=== PATIENT | female | born 1955 | race Caucasian/White ===

== ENCOUNTER 2018-04-02 13:03 | Inpatient (IN) | payer OTHER ==
[2018-04-02] VITALS (7 sets, daily range): BP systolic 114–168; BP diastolic 38–80
[~2018-04-02] VITALS: Ht 162.6 cm; Wt 75.7 kg
--- NOTE | ~2018-04-02 | PROC ---
[facility] [address] [place] [address] PROCEDURE REPORT Name: KIANNA HIDALGO ATTICA Room: [address] IN M.R.#: [id number] Admission: 04/02/18 Attend Phys: Oni Lang MD Discharge: Date of : 51 Report #: [id number] THIS REPORT FOR: //name// For GI report, please see the Provation report in Perceptive 7 content. By: 1056Medical Records Staff THAO /FRED
[2018-04-02] MEDS ORDERED: TYLENOL325 MG PO (13:16)
[2018-04-02] MEDS ORDERED: IBUPROFEN 200200 M1 PO (13:16)
[2018-04-02 13:50] LABS: MCH 16.5 pg (26.0-34.0); MCHC 27.5 g/dL (28.0-37.0); MPV 6.9 fl. (7.2-11.1); NUCLEATED RBCS 1 /100WBC; PLATELET COUNT* 444 thou/uL (150-400); RBC 1.65 mil/uL (4.20-5.00); RDW-CV 22.4 % (10.5-14.5); WBC 6.4 thou/uL (4.0-11.0)
[2018-04-02 13:56] LABS: ANION GAP 6 mmol/L (7-16); BUN 10 mg/dL (7-18); CALCIUM 7.9 mg/dL (8.5-10.1); CHLORIDE 105 mmol/L (98-107); CO2 25 mmol/L (21-32); CREATININE 0.9 mg/dL (0.6-1.3); GLUCOSE 124 mg/dL (70-99); POTASSIUM 3.5 mmol/L (3.5-5.1); SODIUM 136 mmol/L (136-145)
[2018-04-02 13:57] LABS: APTT 20.8 Seconds (25.0-31.3); PROTIME 10.7 Seconds (9.20-11.50)
[2018-04-02 14:01] LABS: HEMOGLOBIN 2.7 gm/dL (12.0-15.0)
[2018-04-02 14:02] LABS: HEMATOCRIT 9.9 % (37.0-47.0)
[2018-04-02 14:12] LABS: ALBUMIN 2.5 g/dL (3.4-5.0); ALKALINE PHOSPHATASE 71 U/L (46-116); LIPASE 110 U/L (73-393); NT-PRO BRAIN NAT PEPTIDE 696 pg/mL (<300); SGOT 9 U/L (15-37); SGPT 11 U/L (30-65); TOTAL BILIRUBIN 0.4 mg/dL (<0.1-1.0); TOTAL PROTEIN 6.7 g/dL (6.4-8.2); TROPONIN-I LEVEL <0.06 ng/mL (<0.06)
[2018-04-02 14:41] LABS: ABSOLUTE LYMPHOCYTES 0.6 thou/uL (0.8-5.3); ABSOLUTE MONOCYTES 0.2 thou/uL (0.0-1.2); ABSOLUTE NEUTROPHILS 5.6 thou/uL (1.6-8.1)
[2018-04-02 14:43] LABS: PLATELET ESTIMATE INCREASED
[2018-04-02 14:44] LABS: ANISOCYTOSIS 2+; HYPOCHROMASIA 3+; MICROCYTES 3+; POLYCHROMASIA Occasional; TEARDROPS 1+
[2018-04-02 14:45] LABS: OVALOCYTES Occasional; POIKILOCYTOSIS 1+
--- NOTE | 2018-04-02 15:14 | NUR ---
BLOOD CONSENT SIGNED. PRBC STARTED NOW.
--- NOTE | 2018-04-02 17:41 | NUR ---
PATIENT ARRIVED TO 210 PER BED THIS EVENING AT 1555. PATIENT HAS FIRST UNIT OF BLOOD INFUSING IN HER RIGHT UPPER AC. PATIENT ADMITTED TO ROOM AND ORIENTED TO ROOM, CALL LIGHT AND PROCEDURES. FALL PRECAUTIONS EXPLAINED. IV PUMP ALARMING FREQUENTLY DURING TRANFUSION ON ARRIVAL AND LINE DIFFICULT TO FLUSH. PATIENT PLACED ON TELE MONITOR. TELE SHOWS SR. SEE FLOW FOR ASSESSMENTS. CHARGE NURSE NOTIFIED TO ATTEMPT A NEW IV ACCESS. DR MEEKS IN TO ROUND AND ORDERS WRITTEN. PATIENT ADMITTED TO ROOM. DIAGNOSIS EXPLAINED TO PATIENT AND FAMILY. BLOOD TRANSFUSION CONTINUED FROM ER. PATIENT C/O RIGHT SIDE PAIN. SHE DENIES N/V. WILL CONTINUE TO MONITOR.
[2018-04-03] VITALS: BP 139/80
[2018-04-03 02:49] LABS: URINE BILIRUBIN NEGATIVE (Negative); URINE BLOOD NEGATIVE (Negative); URINE CLARITY CLEAR; URINE COLOR YELLOW; URINE GLUCOSE-RANDOM NEGATIVE (Negative); URINE KETONES NEGATIVE (Negative); URINE LEUKOCYTES TRACE (Negative); URINE NITRITE NEGATIVE (Negative); URINE PROTEIN NEGATIVE (Negative); URINE UROBILINOGEN 0.2 E.U./dl (0.2-1.0)
[2018-04-03 03:57] LABS: CASTS None Seen /LPF (None Seen); SQUAMOUS 0-3 Few /LPF (0-3)
[2018-04-03 03:58] LABS: BACTERIA >30 Many /HPF (None Seen); CRYSTALS None Seen /LPF (None Seen); URINE RBC None Seen /HPF (0-2)
[2018-04-03 04:00] VITALS: BP 112/68
--- NOTE | 2018-04-03 05:17 | NUR ---
ASSUMED CARE OF PT AT 1900. PT IS ALERT AND ORIENTED. VSS. PERRLA. PT REPORTS SOME PAIN IN ABDOMAN. PT RECIEVING TRAMADOL FOR PAIN. PT RECIEVED 2 UNITS OF BLOOD THIS SHIFT. HGB IS 7 AT THIS TIME. PT IS SLEEPING QUIETLY IN BED. RESPIRATIONS ARE EVEN AND NONLABORED. NISSA CONTINUE TO MONITOR PT.
[2018-04-03 08:00] VITALS: BP 119/58
[2018-04-03 11:39] VITALS: BP 110/64
--- NOTE | 2018-04-03 11:39 | NUR ---
ASSUMED CARE OF PATIENT THIS AM AT 0730. PATIENT IS ALERT AND ORIENTED X 4. SHE STATES ABD PAIN IS CONTROLLED AT THE TIME OF ASSESSMENT. PATIENT ON CLEAR LIQUIDS FOR BREAKFAST. TELE SHOWS NSR. NO BLEEDING NOTED AT THIS TIME. WILL CONTINUE TO MONITOR.
[2018-04-03 16:04] VITALS: BP 126/69
[2018-04-03 20:40] VITALS: BP 115/78
[2018-04-04] VITALS (7 sets, daily range): BP systolic 106–112; BP diastolic 50–60
--- NOTE | 2018-04-04 04:53 | NUR ---
PT CARE ASSUMED AT 1930. SAT MAINTAINED IN RA. CALL LIGHT WITHIN REACH AND BED IN LOW POSITION. C/O PAIN , MEDICATION GIVEN PER EMAR. PT FINISHED ALMOST HALF OF THE BOWEL PREP SOLUTION, EDUCATION GIVEN, REFUSES TO DRINK ANYMORE. AO X4 BUT FORGETFUL AT TIMES. HOURLY ROUNDING DONE FOR PT SAFETY.
--- NOTE | 2018-04-04 08:45 | NUR ---
REC'D REPORT FROM NOC RN, ASSUMED CARE OF PT APPROX 0730. ORIENTED X4, ABLE TO COMMUNICATE NEEDS TO STAFF. ASSESSMENT COMPLETE, VS OBTAINED. PLUGGER MAN IN PLACE, SR. O2 SATS 96% RA. NPO FOR COLONOSCOPY. FAMILY AT BEDSIDE. CALL LIGHT WITHIN REACH. HOURLY ROUNDING FOR SAFETY AND PT NEEDS.
--- NOTE | 2018-04-04 10:14 | NUR ---
Removed non-working IV from left fore arm and noted cloudy fluid coming from IV insertion site. Was small amount that was expressed from site. No redness noted at site. Does have small blood blister areas from tape removal.
--- NOTE | 2018-04-04 13:45 | NUR ---
in speaking with Pt regarding suspected CA dx, CM will f/u tomorrow
--- NOTE | 2018-04-04 14:01 | NUR ---
Nutrition: Nursing risk 2 points. No wt hx in [facility]. Pt is NPO after MN. Had colonoscopy today, found colon mass. Possible surgery Wednesday. ?cancer DX. Wt: 139#. Alb 2.3, prealb 10.8. No nutrition interventions needed today. Awaiting surgery, NPO status. Will follow up for results, diet advancement, need for supplements, wt, labs, 04/07/18.
--- NOTE | 2018-04-04 14:08 | EKG ---
[place] [address] ELECTROCARDIOGRAM REPORT Name: KIANNA HIDALGO Room: [address] ADM IN M.R.#: [id number] Admission: 04/02/18 Attend Phys: Oni Lang MD Discharge: Date of : 51 Report #: [id number] THIS REPORT FOR: //name// [facility] ED Test Date: 2018-04-02 Test Time: 13:37:57 Pat Name: KIANNA HIDALGO Department: Room: [facility] Gender: F Gambling Dealer: JOSE : 1955 Requested By: July Carranza Order Number: [id number] MD: Joby Peace Measurements Intervals [place] Rate: 87 P: 56 MO: 142 QRS: 2 QRSD: 93 T: 54 QT: 410 QTc: 494 Interpretive Statements Sinus rhythm Borderline prolonged QT interval No previous ECG available for comparison Electronically Signed On 04-04-2018 14:08:47 MAP COMPILER by Joby Peace [email or web address] <ELECTRONICALLY SIGNED> By: Joby Peace MD, [facility] 04/04/18 1408 1337 133 Joby Peace MD, FACC /EPI
--- NOTE | 2018-04-04 14:09 | EKG ---
[place] [address] ELECTROCARDIOGRAM REPORT Name: KIANNA HIDALGO Room: [address] ADM IN M.R.#: [id number] Admission: 04/02/18 Attend Phys: Oni Lang MD Discharge: Date of : 51 Report #: [id number] THIS REPORT FOR: //name// [facility] ED Test Date: 2018-04-02 Test Time: 14:40:26 Pat Name: KIANNA HIDALGO Department: Room: [facility] Gender: F Desktop Technician: JOSE : 1955 Requested By: July Carranza Order Number: [id number] : Joby Peace Measurements Intervals [place] Rate: 83 P: 66 ND: 171 QRS: 4 QRSD: 102 T: 60 QT: 409 QTc: 481 Interpretive Statements Sinus rhythm Minimal ST depression, lateral leads Borderline prolonged QT interval No previous ECG available for comparison Electronically Signed On 04-04-2018 14:09:11 SHELLAC POLISHER by Joby Peace [email or web address] <ELECTRONICALLY SIGNED> By: Joby Peace MD, [facility] 04/04/18 1409 1440 1440 Joby Peace MD, FAC /EPI
[2018-04-04 17:10] LABS: % SATURATION 53 % (20-39); IRON 163 ug/dL (50-175)
[2018-04-05] VITALS (7 sets, daily range): BP systolic 100–152; BP diastolic 50–69
--- NOTE | 2018-04-05 07:05 | NUR ---
RECEIVED REPORT AND ASSUMED CARE 1900. VSS. CARDIAC MONITORING IN PLACE. PT REPORTS PAIN, PRN MEDICATION ADMIN PER ORDERS. ASSESSMENT COMPLETED CHARTED. DISCUSSED PLAN OF CARE WITH PT, VERBALIZED UNDERSTANDING. BED LOCKED IN LOWEST POSITION CALL LIGHT WITHIN REACH. PT UP WITH ASSIST, ON RA. HOURLY ROUNDING COMPLETED AND ALL NEEDS MET.
--- NOTE | 2018-04-05 09:53 | NUR ---
Pt is A&O. Resides at home alone. Normally independent with ADLs. Pt's in February, Pt was his caregiver. New dx of CA yesterday, planned surgery tomorrow. No DME. No hx of HH or SNF. [facility] consulted regarding [place] [facility]. Following for disposition.
--- NOTE | 2018-04-05 09:59 | NUR ---
ASSUMED CARE OF PT THIS AM AROUND 714- REGIONAL MAINTENANCE MANAGER IN PLACE ORDERED, TRACING SR- UPON ASSESSMENT PT NOTED TO BE RESTING IN BED, DAUGHTER AT SIDE VISITING- PT A&O X4, FORGETFUL AT TIMES- CONTINENT OF BOWEL AND BLADDE- LIMITED/SBA WITH TRANSFERS FOR SAFETY- LCTA, RESP EVEN AND UN-LABORED- VSS, O2 SAT 96% ON RA- ABD SOFT/ROUND/TENDERNESS REPORTED TO RLQ, BS X4 QUADS- LAST BM REPORTED ON PRIOR SHIFT- IV NOTED TO RIGHT FA INTACT AND SL- TRACE EDEMA NOTED TO BLE-CLEAR LIQUIDS IN PLACE ORDERED- PAIN REPORTED 3/10 TO RLQ, REPOSITIONING IN PLACE- CALL LIGHT AND PERSONAL BELONGINGS WITH IN REACH- HOURLY ROUNDS IN PLACE R/T SAFETY/NEEDS- ALL NEEDS MET AT THIS TIME-WCTM
--- NOTE | 2018-04-05 17:28 | NUR ---
PT CURRENTLY RESTING IN BED, FAMILY AT SIDE VISITING- COOKER MECHANIC IN PLACE ORDERED, TRACING SR- IV TO RIGHT FA INTACT, BLOOD CURRENTLY INFUSSING PRESCIBED PRE R/T 7.1 HGB WITH SURGERY PLANNED IN AM- K+ RESULTED AT 3.3 THIS SHIFT, REPLACED PER PROTOCOL WITH REDRAW TO FOLLOW - PRN TRAMADOL X1 THIS SHIFT AT 1412 R/T C/O RIGHT SIDE PAIN, ZOFRAN X1 THIS SHIFT AT 1430 R/T UPSET STOMACH POST K+ REPLACEMENT- PLANNED SURGERY 04/06/18 AT 1400 FOR LAPAROSCOPIC RIGHT HEMICOLECTOMY; POSSIBLE HEMICOLECTOMY, PAOSSIBLE LAPAROTOMY, POSSIBLE OSTOMY- CONCENT SIGNED AND PLACED ON CHART INDICATED- VS CURRENLTY BEING MONITORED INDICATED WITH BLOOD INFUSSION- CALL LIGHT AND PERSONAL BELONGINGS WITH IN REACH- ALL NEEDS MET AT THIS TIME-WCTM
[2018-04-05 20:49] LABS: HEMOGLOBIN 9.1 gm/dL (12.0-15.0)
[2018-04-06] VITALS: BP 126/50
[2018-04-06 04:00] VITALS: BP 135/65
[2018-04-06 05:19] LABS: HEMATOCRIT 28.9 % (37.0-47.0); MCH 23.7 pg (26.0-34.0); MCHC 31.2 g/dL (28.0-37.0); MPV 7.4 fl. (7.2-11.1); NUCLEATED RBCS 0 /100WBC; PLATELET COUNT* 390 thou/uL (150-400); RBC 3.81 mil/uL (4.20-5.00); RDW-CV 31.1 % (10.5-14.5); WBC 10.6 thou/uL (4.0-11.0)
--- NOTE | 2018-04-06 05:20 | NUR ---
RECEIVED REPORT AND ASSUMED CARE AT 1900. VSS. CARDIAC MONITORING IN PLACE. PT DENIES COMPLAINTS OF PAIN. ASSESSMENT COMPLETED CHARTED. PT UP WITH ASSIST TO BSC, ON RA. BED LOCKED IN LOWEST POSITION, CALL LIGHT WITHIN REACH, BED ALARM ON. DISCUSSED PLAN OF CARE WITH PT, VERBALIZED UNDERSTANDING. HOURLY ROUNDING COMPLETED AND ALL NEEDS MET.
[2018-04-06 05:21] LABS: MCV 75.8 fL (80.0-100.0)
[2018-04-06 05:26] LABS: CALCIUM 8.5 mg/dL (8.5-10.1); CREATININE 0.6 mg/dL (0.6-1.3); POTASSIUM 4.4 mmol/L (3.5-5.1)
[2018-04-06 05:42] LABS: ABSOLUTE EOSINOPHILS 0.3 thou/uL (0.0-0.7); ABSOLUTE LYMPHOCYTES 1.3 thou/uL (0.8-5.3); ABSOLUTE MONOCYTES 0.4 thou/uL (0.0-1.2); ABSOLUTE NEUTROPHILS 8.6 thou/uL (1.6-8.1); ANISOCYTOSIS 3+; HYPOCHROMASIA 1+; PLATELET ESTIMATE ADEQUATE; POLYCHROMASIA 1+
[2018-04-06 08:07] VITALS: BP 123/69
--- NOTE | 2018-04-06 08:36 | NUR ---
CM faxed med recs to July at [facility], July working on expediating N[facility] wendie for Pt. Following.
--- NOTE | 2018-04-06 09:37 | NUR ---
ASSUMED CARE OF PT THIS AM AROUND 0715- SAMPLE BODY BUILDER IN PLACE ORDERED, TRACING SR- UPON ASSESSMENT PT NOTED TO BE RESTING IN BED, FAMILY AT SIDE VISITING AND ACTIVE WITH CARES- - PT A&O X4- WITHDRAWN/QUIET- CONTINENT OF BOWEL AND BLADDER- SBA WITH TRANSFERS FOR SAFETY- LCTA, DIMINSHED IN BASES- VSS, O2 SAT 95% ON RA- RIGHT ABD MASS NOTED, HYPOACTIVE BS- LAST BM REPORTED 04/05/18- IV NOTED TO LEFT FA INTACT AND SL- PT CURRENLTY NPO FOR PLANNED SURGERY TODAY AT 1400- PT REPORTS PAIN TO RIGHT LOWER ABD THIS AM 04/24, DENIES NEED FOR PAIN MEDICATION AT THIS TIME-CALL LIGHT AND PERSONAL BELONGINGS WITH IN REACH- HOURLY ROUNDS IN PLACE R/T SAFETY/NEEDS- ALL NEEDS MET AT THIS TIME-WCTM
[2018-04-06 11:39] VITALS: BP 118/57
[2018-04-06 13:00] VITALS: BP 106/50
--- NOTE | 2018-04-06 16:14 | NUR ---
[facility] wendie pending as of 04/06/18
--- NOTE | 2018-04-06 18:21 | NUR ---
PT LEFT UNIT AT 1300 FOR SURGERY VIA BED- PRE-OP ABT FLAGYL GIVEN TO NURSE TO ADMINISTER PRIOR TO SURERY-TRAMADOL ADMINISTERED X1 AT 1140 PRIOR TO SURGERY FOR C/O RIGHT LOWER ABD PAIN, PT REPORTED MEDICATION TO BE ERFFECTIVE- PT STILL OFF UNIT AT THIS TIME- HAS NOT RETURNED FROM SURGERY- WCTM
[2018-04-06 19:45] VITALS: BP 113/65
[2018-04-07] VITALS: BP 101/61
[2018-04-07 06:12] LABS: ABSOLUTE LYMPHOCYTES 0.6 thou/uL (0.8-5.3); ABSOLUTE MONOCYTES 0.8 thou/uL (0.0-1.2); ABSOLUTE NEUTROPHILS 15.5 thou/uL (1.6-8.1); BASOPHILS 0.3 %; HEMOGLOBIN 9.3 gm/dL (12.0-15.0); LYMPHOCYTES 3.6 %; MCH 23.7 pg (26.0-34.0); MCV 78.9 fL (80.0-100.0); MONOCYTES 4.8 %; MPV 7.5 fl. (7.2-11.1); NUCLEATED RBCS 0 /100WBC; PLATELET COUNT* 396 thou/uL (150-400); POLYS 91.3 %; RBC 3.92 mil/uL (4.20-5.00); RDW-CV 31.5 % (10.5-14.5)
[2018-04-07 06:23] LABS: CREATININE 1.5 mg/dL (0.6-1.3); POTASSIUM 4.8 mmol/L (3.5-5.1)
[2018-04-07 08:00] VITALS: BP 92/60
--- NOTE | 2018-04-07 09:18 | NUR ---
RECEIVED REPORT AND ASSUMED CARE AT 2015. PT TRANSPORTED BY NURSE FROM POST OP TO ROOM 210. VSS. CARDIAC MONITORING IN PLACE, SUCTION FOR NG SET TO LIS. PT VERBALIZED PAIN, RESTLESS, ANXIOUS. PRN MEDICATION ADMIN PER ORDERS. NG/RADHA DRAIN. MCCOY MONITORED THROUGH SHIFT. BED LOCKED IN LOWEST POSITION, CALL LIGHT WITHIN REACH, BED ALARM ON. FAMILY AT BEDSIDE. FAMILY SPOKE WITH NURSE ABOUT SPEAKING WITH DR/CM ABOUT PALLIATIVE CARE. PASSED REQUEST IN MORNING REPORT TO ONCOMING RN AND CM. HOURLY ROUNDING COMPLETED AND ALL NEEDS MET.
[2018-04-07 11:59] VITALS: BP 87/47
--- NOTE | 2018-04-07 14:08 | PATH ---
[address] [address] PATHOLOGY RPT PROCEDURE Name: KIANNA HIDALGO Room: [address] IN M.R.#: [id number] Admission: 04/02/18 Date of : 51 Discharge: Report #: [id number] Path Case #: [id number] [facility] Accession Number: [id number] . 01 Material submitted: . CECAL MASS . 01 Clinical history: . None provided . 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 . (Please see comment) [facility]04[facility]2018 . 02 Comment: This case has also been reviewed by Dr. Elanie Dugan who agrees with the diagnosis. . A message concerning the diagnosis in this case was left with Dr. Swathi Michael, on 04/05/2018. (SKM:damien 04/07/2018) . 02 Electronically signed: . Cheng Suero MD, Pathologist NPI- [id number] . 01 Gross description: . Received in formalin labeled "Kianna Hidalgo, cecal mass," are 4 segments of gould soft tissue measuring 1.3 x 0.8 x 0.3 cm in aggregate dimensions and ranging from 0.3 to 0.4 cm in maximum dimension. The specimen is submitted entirely in cassette A1. (TSD; 04/04/2018) TOB/TOB . 02 Pathologist provided ICD-10: C18.0 . 02 CPT . 213346 Specimen Comment: A courtesy copy of this report has been sent to Specimen Comment: [phone]. Specimen Comment: Report sent to Performed at: 01 [facility] [address] [place] [address] [id number] [place] [address] PATHOLOGY RPT PROCEDURE Name: KIANNA HIDALGOSA Room: [address] IN [facility]#: [id number] Admission: 04/02/18 Date of : 51 Discharge: Report #: [id number] Path Case #: [id number] MD Dhaval Miller MD Phone: [phone] Performed at: 02 [facility] [address] [place] [address] [id number] MD Andrew Gasca MD Phone: [phone]
--- NOTE | 2018-04-07 15:41 | NUR ---
RIGHT BASILIC VESSEL ACCESSED FOR SINGLE LUMEN 4 LAO PICC. LINE PRE-TRIMMED TO 36 CM AND ADVANCED TO THE ZERO KLARISSA WITH NO RESISTANCE MET. UPPER ARM CIRCUMFERENCE= 10". SHERLOCK MAGNET AND 3CG CONFIRMATION OF TIP TERMINATION AT THE CAVOATRIAL JUNCTION. GUIDEWIRE REMOVED, LINE FLUSHED AND INSERTION SITE DRESSED. REPORT GIVEN TO JORGE PERRY.
[2018-04-07 16:17] VITALS: BP 104/54
[2018-04-07 16:18] LABS: HEMATOCRIT 29.4 % (37.0-47.0); HEMOGLOBIN 8.8 gm/dL (12.0-15.0)
[2018-04-07 17:37] LABS: RBC 3.76 mil/uL (4.20-5.00); WBC 11.9 thou/uL (4.0-11.0)
[2018-04-07 17:38] LABS: MCH 23.3 pg (26.0-34.0); MCV 77.6 fL (80.0-100.0); RDW-CV 32.2 % (10.5-14.5)
[2018-04-07 17:39] LABS: MPV 7.7 fl. (7.2-11.1)
[2018-04-07 17:40] LABS: CALCIUM 8.5 mg/dL (8.5-10.1); CREATININE 2.2 mg/dL (0.6-1.3); POTASSIUM 5.1 mmol/L (3.5-5.1)
[2018-04-07 20:00] VITALS: BP 102/53
[2018-04-08 00:08] VITALS: BP 97/57
[2018-04-08 04:12] VITALS: BP 110/49
--- NOTE | 2018-04-08 04:50 | NUR ---
ASSUMED PATIENT CARE AT 1900. PATIENT ALERT AND ORIENTED TIMES FOUR. COMPLAINTS OF CONSTANT PAIN IN ABD. RELIEVED WITH IV PAIN MEDICATION. GAVE SMALLER DOSE THROUGHOUT THE NIGHT WITH SAME AMOUNT OF RELIEF AND LESS NEUROLOGICAL DEFICITS. RESTED ON AND OFF THROUGH THENIGHT. NG IN PLACE TO RIGHT NARE. MCCOY AND IV PATENT. FAMILY AT BEDSIDE. FALL RISK PRECAUTIONS IN PLACE. HOURLY ROUNDING AND HADOOP APPLICATION DEVELOPER CHARTED.
--- NOTE | 2018-04-08 07:16 | CON ---
[address] [address] CONSULTATION Name: KIANNA HIDALGO Room: [address] IN M.R.#: [id number] Admission: 04/02/18 Attend Phys: Oni Lang MD Discharge: Date of : 51 Report #: [id number] THIS REPORT FOR: //name// CC: [facility] physician/PCP Oni Lang DATE OF SERVICE: 04/07/2018 INFECTIOUS DISEASE CONSULTATION ATTENDING PHYSICIAN: Dr. Lang. REASON FOR EVALUATION: Positive blood culture, also low grade temperature elevations in the setting of extended surgery for removal of a right-sided colonic mass. This was complicated by ureteral compromise. HISTORY OF PRESENT ILLNESS: Chart reviewed, patient examined. This is a 62-year-old with a fairly unremarkable history, although it appears she has been ill for quite some time and has had ongoing issues of abdomen-related pain. She has had a weight loss per family in excess of 100 pounds, associated anorexia with poor p.o. intake. She is unable to give history, although children are there to supply some, the recent of her spouse. She has been profoundly depressed. She was evaluated including CT imaging on 04/02/2018, which showed cecal thickening, mild pericolonic soft tissue strandings, there was question of a colonic mass. Chest x-ray was otherwise unremarkable. She underwent operative procedure, had right hemicolectomy. Specimens showed large obstructing cecal mass, did require right ureteral-ureterostomy with stent placement as well. She is seen postop. She is quite encephalopathic at this point, in part I think as a result of residual medication effects. She did have blood cultures collected on the with 1 out of 2 with coag-negative Staph. Abscess culture is pending. She has been started on empiric therapy with metronidazole, cefazolin. ALLERGIES: None known. MEDICATIONS: Currently include enoxaparin, pantoprazole, Flagyl, hydromorphone, cefazolin, p.r.n. analgesics and antiemetics. PAST MEDICAL HISTORY: Otherwise, unremarkable. SOCIAL HISTORY: Nonsmoker, no ethanol or illicit drug use. FAMILY HISTORY: Noncontributory. REVIEW OF SYSTEMS: Not reliably obtained due [place] [address] CONSULTATION Name: KIANNA HIDALGOSA Room: [address]#: [id number] Admission: 04/02/18 Attend Phys: Oni Lang MD Discharge: Date of : 51 Report #: [id number] PHYSICAL EXAMINATION: GENERAL: She appears chronically ill, undernourished. She is in xkwl-gl-ozkrwvos distress. VITAL SIGNS: Temperature 99.2, pulse 102, respirations 16, blood pressure 87/47. SKIN: Warm, dry, no rashes. HEENT: Normocephalic. NECK: Supple. LUNGS: Diminished bilaterally. HEART: Regular, tachycardic. No appreciated murmur. ABDOMEN: Soft. There are no overt peritoneal signs. She has got a Evaristo-Whitney drain in place, scant amount of output. EXTREMITIES: Distal lower extremities, somewhat cool to touch distally. GENITOURINARY: Deferred. RECTAL: Deferred. LABORATORY DATA: Electrolytes: Sodium 139, potassium 4.8, chloride 107, bicarb is 22, anion gap of 10, BUN and creatinine 11 and 1.5. Estimated GFR of 35. CBC: White count of 17.0, H and H 9.3 and 31.0, platelets of 396. Blood culture as noted above, felt to be a false positive or contaminant with 1 out 2 with coag-negative staph. Prealbumin was low at 10.8. Liver functions otherwise unremarkable. Albumin of 2.3. Total protein 6.2. ASSESSMENT AND PLAN: Positive blood culture in this setting. I think it is likely a false positive. She did have some low-grade temperature elevation. Certainly at risk for nosocomial related infectious complications including a surgical site. We will adjust antimicrobial therapy at this point, repeat the chest x-ray. Certainly at risk for pneumonitis on the basis of aspiration given her encephalopathy. Does have an indwelling catheter in bladder. Did discuss with the patient's family the pathology report is pending. <ELECTRONICALLY SIGNED> By: Clive Wilson MD 04/08/18 0716 1338 1952Jowilver Wilson MD /nt
[2018-04-08 08:35] VITALS: BP 89/49
[2018-04-08 09:07] LABS: HEMATOCRIT 28.2 % (37.0-47.0); HEMOGLOBIN 8.4 gm/dL (12.0-15.0); MCH 23.4 pg (26.0-34.0); MCHC 29.9 g/dL (28.0-37.0); MCV 78.3 fL (80.0-100.0); MPV 7.7 fl. (7.2-11.1); NUCLEATED RBCS 0 /100WBC; PLATELET COUNT* 376 thou/uL (150-400); RDW-CV 33.7 % (10.5-14.5); WBC 9.8 thou/uL (4.0-11.0)
[2018-04-08 09:15] LABS: CALCIUM 7.9 mg/dL (8.5-10.1); CREATININE 2.7 mg/dL (0.6-1.3); MAGNESIUM 1.5 mg/dL (1.8-2.4); PHOSPHORUS* 5.6 mg/dL (2.5-4.9); POTASSIUM 5.2 mmol/L (3.5-5.1)
--- NOTE | 2018-04-08 09:34 | OP ---
[facility] [address] [place] [address] OPERATIVE REPORT Name: KIANNA HIDALGO Room: [address] IN M.R.#: [id number] Admission: 04/02/18 Attend Phys: Oni Lang MD Discharge: Date of : 51 Report #: [id number] THIS REPORT FOR: //name// CC: [facility] physician/PCP Oni Lang DATE OF SERVICE: 04/06/2018 PREOPERATIVE DIAGNOSIS: Right proximal ureteral injury. POSTOPERATIVE DIAGNOSIS: Right proximal ureteral injury. PROCEDURES PERFORMED: Right ureteroureterostomy. SURGEON: Kehinde De Luna M.D. DRILLING FOREMAN: Edil Doherty M.D. ANESTHESIA: General endotracheal. BRIEF HISTORY: The patient is a 62-year-old female with recently diagnosed right colon cancer. She was scheduled for a right hemicolectomy with Dr. Dangelo this afternoon. Intraoperatively Dr. Dangelo recognized a right ureteral injury and urologic consultation was obtained. The patient was under anesthesia and prepped and draped at the time of the consultation. PROCEDURE IN DETAIL: The patient was prepped and draped with an open abdominal incision. The abdominal contents had been previously packed off by Dr. Dangelo. Careful inspection revealed the patient's right kidney in situ and healthy appearing. The right proximal ureter was identified, and there was a clear transection of the proximal ureter with thermal artifact at its distal extent. The remainder of the ureter appeared healthy without any apparent thermal injury. The distal portion of the ureter was similarly identified and had clearly been transected with a thermal injury as well. The remainder of the mid ureter appeared healthy. At this time, a 2-0 Vicryl stay suture was placed through each end of the transected ureter. This was used in retraction as the ureter was gently mobilized both proximally and distally in order to create enough length for anastomosis. Care was taken not to disrupt the periureteral tissues or grasp the ureter directly. The two ureteral ends were loosely brought into approximation, and there was clear overlap, accounting for the space required to remove the thermal injury. At this time, Metzenbaum scissors were used to transect each end allowing for a healthy margin of tissue to account for the thermal injury. With the ends freshened up, they were then spatulated. Once again, bringing the two ends loosely together demonstrated a nice approximation for a tension-free anastomosis. At this time, a running 4-0 [place] [id number] OPERATIVE REPORT Name: KIANNA HIDALGO Room: [address] IN [facility]#: [id number] Admission: 04/02/18 Attend Phys: Oni Lang MD Discharge: Date of : 51 Report #: [id number] anastomosis. Prior to completing the anastomosis a 0.035 sensor wire was fed into the proximal portion of the ureter up into the kidney. A 6 x 28 Contour ureteral stent was then advanced over the wire and into the kidney. The wire was withdrawn. The wire was then fed down the distal ureter to the bladder. The distal end of the stent was then fed over the wire and was directed down the ureter to the bladder. The wire was removed and the stent was seen to seat nicely within the anastomosis. The anastomosis was then completed with the 4-0 Vicryl, running it to close the defect. After the closure had been completed, the ureter was nicely reapproximated with a tension-free anastomosis. Care of the patient was then turned over to Dr. Dangelo and his staff to complete their portion of the procedure. Right flank drain was recommended along with Webster catheter drainage. COMPLICATIONS: None. ESTIMATED BLOOD LOSS: Per Dr. Dangelo. IV FLUIDS: Per Dr. Dangelo. SPECIMENS: None per Urology. DRAINS: Right 6 x 28 double-J ureteral stent. FINDINGS: 1. Completely transected right proximal ureter with thermal injury at the sites of transection. 2. Tension-free ureteroureterostomy after freshening the edges of the transected ureter. 3. Right 6 x 28 double-J ureteral stent placed. <ELECTRONICALLY SIGNED> By: Kehinde De Luna MD 04/08/18 0934 1807 [id number] De Luna MD /nt
[2018-04-08 10:55] LABS: ABSOLUTE BASOPHILS 0.1 thou/uL (0.0-0.2); ABSOLUTE LYMPHOCYTES 0.4 thou/uL (0.8-5.3); ABSOLUTE MONOCYTES 0.1 thou/uL (0.0-1.2); ABSOLUTE NEUTROPHILS 9.2 thou/uL (1.6-8.1); ANISOCYTOSIS 3+; HYPOCHROMASIA 2+; PLATELET ESTIMATE ADEQUATE
[2018-04-08 12:04] LABS: URINE BLOOD 3+ (Negative); URINE CLARITY CLEAR; URINE COLOR YELLOW; URINE GLUCOSE-RANDOM NEGATIVE (Negative); URINE KETONES TRACE (Negative); URINE LEUKOCYTES 3+ (Negative); URINE NITRITE POSITIVE (Negative); URINE PROTEIN 3+ (Negative); URINE UROBILINOGEN 0.2 E.U./dl (0.2-1.0)
[2018-04-08 12:06] LABS: ICTOTEST (BILI CONFIRMATORY) Positive (Negative); URINE BILIRUBIN 2+ (Negative)
[2018-04-08 12:16] LABS: BACTERIA >30 Many /HPF (None Seen); CASTS None Seen /LPF (None Seen); CRYSTALS None Seen /LPF (None Seen); MUCUS None Seen strn/LPF (None Seen); SQUAMOUS 0-3 Few /LPF (0-3); URINE RBC >20 Many /HPF (0-2)
[2018-04-08 12:18] LABS: ALBUMIN 1.8 g/dL (3.4-5.0); CALCIUM 7.8 mg/dL (8.5-10.1); CREATININE 2.8 mg/dL (0.6-1.3); PHOSPHORUS* 5.7 mg/dL (2.5-4.9); POTASSIUM 5.2 mmol/L (3.5-5.1)
[2018-04-08 12:58] VITALS: BP 103/60
--- NOTE | 2018-04-08 18:03 | NUR ---
PT WORKED WITH PT/OT TODAY. WAS ABLE TO TOLERATE CLEAR LIQUID DIET WITH FAMILY ENCOURAGEMENT. PT USING INCENTIVE SPIROMETER FREQUENTLY.
[2018-04-08 20:00] VITALS: BP 104/52
[2018-04-08 21:51] LABS: SOURCE JP DRAIN
[2018-04-08 23:30] VITALS: BP 107/60
[2018-04-09 04:00] VITALS: BP 116/59
[2018-04-09 05:09] LABS: ABSOLUTE LYMPHOCYTES 0.4 thou/uL (0.8-5.3); ABSOLUTE MONOCYTES 0.4 thou/uL (0.0-1.2); ABSOLUTE NEUTROPHILS 6.4 thou/uL (1.6-8.1); BASOPHILS 0.2 %; EOSINOPHILS 0.2 %; HEMATOCRIT 24.2 % (37.0-47.0); HEMOGLOBIN 7.3 gm/dL (12.0-15.0); LYMPHOCYTES 5.2 %; MCH 23.7 pg (26.0-34.0); MCHC 30.3 g/dL (28.0-37.0); MCV 78.2 fL (80.0-100.0); MONOCYTES 5.7 %; MPV 8.6 fl. (7.2-11.1); NUCLEATED RBCS 0 /100WBC; POLYS 88.7 %; RBC 3.09 mil/uL (4.20-5.00); RDW-CV 33.9 % (10.5-14.5); WBC 7.2 thou/uL (4.0-11.0)
[2018-04-09 05:22] LABS: PREALBUMIN 4.3 mg/dL (18.0-35.7)
[2018-04-09 05:25] LABS: PLATELET COUNT* 267 thou/uL (150-400)
[2018-04-09 06:00] LABS: ALBUMIN 1.5 g/dL (3.4-5.0); ALKALINE PHOSPHATASE 51 U/L (46-116); ANION GAP 10 mmol/L (7-16); BUN 28 mg/dL (7-18); CALCIUM 7.6 mg/dL (8.5-10.1); CHLORIDE 113 mmol/L (98-107); CO2 20 mmol/L (21-32); CREATININE 1.6 mg/dL (0.6-1.3); GLUCOSE 112 mg/dL (70-99); PHOSPHORUS* 3.6 mg/dL (2.5-4.9); POTASSIUM 3.9 mmol/L (3.5-5.1); SGOT 11 U/L (15-37); SGPT < 6 U/L (30-65); SODIUM 143 mmol/L (136-145); TOTAL BILIRUBIN 0.6 mg/dL (<0.1-1.0); TOTAL PROTEIN 4.6 g/dL (6.4-8.2)
--- NOTE | 2018-04-09 07:40 | NUR ---
RECEIVED REPORT AND ASSUMED CARE AT 1900. VSS. CARDIAC MONITORING IN PLACE. PT REPORTS PAIN. PRN MEDICATION ADMIN PER ORDERS. ASSESSMENT COMPLETED CHARTED. PT UP WITH ASSIST, NG CLAMPED, RADHA DRAIN MONITORED THROUGH SHIFT. BED LOCKED IN LOWEST POSTION, CALL LIGHT WITHIN REACH, BED ALARM ON. POSITION CHANGED EVERY TWO HOURS. HOURLY ROUDNING COMPLETED AND ALL NEEDS MET.
[2018-04-09 08:00] VITALS: BP 120/68
[2018-04-09 12:00] VITALS: BP 120/76
--- NOTE | 2018-04-09 15:01 | NUR ---
PT UP TO CHAIR WITH MUCH ENCOURAGEMENT.DISCUSSED IMPORTANCE OF BEING OUT OF BED WITH BOTH PT AND FAMILY.
[2018-04-09 16:00] VITALS: BP 140/76
[2018-04-09 16:24] VITALS: BP 144/85; BP 147/80; BP 153/76; BP 154/78
--- NOTE | 2018-04-09 17:22 | NUR ---
PT RESTING IN BED THROUGHOUT SHIFT. PT ENCOURAGED TO REPOSITION EVERY 2 HOURS.PT DOES SO WITH MUCH ENCOURAGEMENT. PT UP TO CHAIR FOR APPROX 1 HOUR THIS AFTERNOON. PT HAS POOR APPETITE AND ONLY DRINKING A SMALL AMT OF CLEAR LIQUIDS.IVF INFUSING. MCCOY CATH DRAINING TOM URINE. RADHA TO RUQ DRAINING SEROUS FLUID. IS PERFORMED EVERY HOUR. BLOOD TRANSFUSION THIS PM. FAMILY AT AND INVOLVED IN CARE
[2018-04-09 20:00] VITALS: BP 142/76
[2018-04-09 21:57] LABS: ABSOLUTE LYMPHOCYTES 0.5 thou/uL (0.8-5.3); ABSOLUTE MONOCYTES 0.5 thou/uL (0.0-1.2); ABSOLUTE NEUTROPHILS 8.2 thou/uL (1.6-8.1); EOSINOPHILS 0.2 %; HEMATOCRIT 27.6 % (37.0-47.0); HEMOGLOBIN 8.8 gm/dL (12.0-15.0); LYMPHOCYTES 5.7 %; MCHC 31.7 g/dL (28.0-37.0); MCV 78.8 fL (80.0-100.0); MONOCYTES 5.8 %; MPV 7.9 fl. (7.2-11.1); NUCLEATED RBCS 0 /100WBC; PLATELET COUNT* 254 thou/uL (150-400); POLYS 88.3 %; RBC 3.51 mil/uL (4.20-5.00); RDW-CV 31.9 % (10.5-14.5); WBC 9.3 thou/uL (4.0-11.0)
[2018-04-10] VITALS: BP 142/65
--- NOTE | 2018-04-10 03:28 | NUR ---
ASSUMED PT CARE AT 1930. ASSESSMENT COMPLETED CHARTED. ABLE TO MAKE NEEDS KNOWN. PT SON IN ROOM WITH HER. C/O ABDOMINAL PAIN WHEN TURNING, GAVE PRN PAIN MEDICATION. IVF RUNNING PER P.O. MCCOY DRAINING DARK YELLOW URINE. RADHA DRAIN IN PLACE DRAINING YELLOW LOOKING LIQUID WITH SEDIMENT. VSS. WILL CONTINUE TO MONITOR.
[2018-04-10 04:00] VITALS: BP 132/64
[2018-04-10 08:00] VITALS: BP 139/66
[2018-04-10 16:00] VITALS: BP 157/80
--- NOTE | 2018-04-10 16:09 | NUR ---
PT TEARFUL STATES SHE FEELS LIKE SHE IS A BURDEN TO HER FAMILY. PT HESITANT TO GET OUT OF BED. "IF I AM GOING TO HURT THIS BAD ALL THE TIME I JUST WANT TO !"
--- NOTE | 2018-04-10 16:12 | NUR ---
PT RESTING IN BED MOST OF SHIFT. REPOSITIONED FREQUENTLY. PT UP IN CHAIR TWICE TODAY WITH MUCH HESITANCE. FAMILY AT BS AND INVOLVED IN CARE. PAIN MEDS GIVEN ORDERED. PT TOLERATING CLEAR LIQUIDS. NG REMOVED THIS AM. IVF INFUSING,MCCOY CATH DRAINING
[2018-04-10 18:36] VITALS: BP 157/80
[2018-04-10 20:00] VITALS: BP 141/72
[2018-04-11] VITALS: BP 109/67
--- NOTE | 2018-04-11 02:57 | NUR ---
ASSUMED PT CARE AT 1930. ASSESSMENT COMPLETED CHARTED. ABLE TO MAKE NEEDS KNOWN. C/O ABDOMINAL PAIN, MIDLINE INSITION C/D/I, RADHA DRAIN IN PLACE DRAINING YELLOW DRAINAGE WITH ORANGE/RED SEDIMENT. GAVE PRN PAIN MEDICATIONS TO HELP WITH PAIN. MININAL NAUSEA NOTED. DAUGHTER HAS STAYED THE NIGHT WITH PT ALL NIGHT. PT REFUSING TURNS BECAUSE SHE FOUND A COMFORTABLE POSTION. EDUCATION ON IMPORTANCE OF TURNS AND THERAPY GIVEN. IVF INFUSING PER P.O. PT RESTING IN BED AT THIS TIME. WILL CONTINUE TO MONITOR.
[2018-04-11 04:00] VITALS: BP 108/63
[2018-04-11 07:30] VITALS: BP 118/64
--- NOTE | 2018-04-11 10:18 | CON ---
[address] [address] CONSULTATION Name: KIANNA HIDALGO Room: [address] IN M.R.#: [id number] Admission: 04/02/18 Attend Phys: Oni Lang MD Discharge: Date of : 51 Report #: [id number] THIS REPORT FOR: //name// CC: [facility] physician/PCP Oni Lang NEPHROLOGY CONSULTATION CONSULTING PHYSICIAN: Oni Lang M.D. REASON FOR CONSULTATION: Acute kidney injury. HISTORY OF PRESENT ILLNESS: A 62-year-old female who I am asked to see for acute kidney injury. She has a history of right colon adenocarcinoma and was undergoing right hemicolectomy, when she was noted to have a right proximal ureteral injury and intraoperative Urology consult was obtained. She underwent right ureteroureterostomy, but creatinine has increased significantly from 1.5 to 2.2 to 2.7, with some decreased urine output. She appears to be comfortable at the present time, does not have any complaints. REVIEW OF SYSTEMS: Constitutional, psych, heme, eyes, ENT, respiratory, cardiac, GI, , endocrine all negative, except as documented above. PAST MEDICAL HISTORY: Colon cancer. CURRENT MEDICATIONS: Reviewed. SOCIAL HISTORY: No tobacco. FAMILY HISTORY: Not pertinent in this 62-year-old female. PHYSICAL EXAMINATION: VITAL SIGNS: Blood pressure is 89/49, pulse 112, respirations 18 and temperature 36.7. GENERAL: No acute distress. EYES: Extraocular movements intact. EARS: Externally normal. CARDIOVASCULAR: Tachycardic. LUNGS: Diminished breath sounds. ABDOMEN: Soft. LYMPHATICS: No pitting edema. PSYCHIATRIC: Awake, alert. LABORATORY DATA: White cell count 9.8, hemoglobin 8.4 and platelets 376,000. Sodium 139, potassium 5.2, chloride 106, bicarbonate 22, BUN 27, creatinine 2.7, glucose 95 and calcium 7.9. Phosphorus 5.6. Magnesium 1.5. [place] [address] CONSULTATION Name: KIANNA HIDALGO ALON Room: [address] IN [facility].#: [id number] Admission: 04/02/18 Attend Phys: Oni Lang MD Discharge: Date of : 51 Report #: [id number] ASSESSMENT: 1. Acute kidney injury with admission creatinine of 0.9. This is in the setting of low blood pressures. Creatinine up to 2.7 on 04/08/2018. 2. Hypertension. 3. Anemia. 4. Colon cancer, status post right hemicolectomy. 5. Right proximal ureteral injury, status post ureteroureterostomy. 6. Intra-abdominal abscess, status post incision and drainage. PLAN: 1. On normal saline, the urine output is starting to picker operator. 2. Check U/A with micro. 3. Check renal ultrasound as she is on empiric antibiotics. 4. Hypomagnesemia. We will replace magnesium. 5. Case was discussed with the patient and family in detail. We will follow closely. Thank you for requesting my opinion in the care and management of this patient. <ELECTRONICALLY SIGNED> By: Radha Kapoor MD 04/11/18 [id number] Kapoor MD /nt
[2018-04-11 12:00] VITALS: BP 105/64
--- NOTE | 2018-04-11 15:06 | PATH ---
[address] [address] PATHOLOGY RPT PROCEDURE Name: KIANNA HIDALGO Room: [address] IN M.R.#: [id number] Admission: 04/02/18 Date of : 51 Discharge: Report #: [id number] Path Case #: [id number] [facility] Accession Number: [id number] . 01 Material submitted: . PART A: RIGHT COLON PART B: OMENTUM . 01 Clinical history: . Cecal Mass Perforated right colon mass . 02 Diagnosis: A. Right colon: - ULCERATED, CIRCUMFERENTIAL MODERATE TO POORLY DIFFERENTIATED ADENOCARCINOMA FORMING A MASS IN THE CECUM MEASURING 5.0 X 4.3 CM, WITH TRANSMURAL INVASION AND DIRECT EXTENSION TO SURGICAL MARGINS AROUND OPEN DEFECTS ADHERENT TO BOTH LATERAL ABDOMINAL WALL WELL SECOND PART OF DUODENUM AND ALSO INVOLVING INKED FREE SEROSAL SURFACE, WITH PROXIMAL AND DISTAL RESECTION MARGINS FREE OF MALIGNANCY. - AT LEAST SIX OF AT LEAST ELEVEN PERICOLIC LYMPH NODES WITH METASTATIC ADENOCARCINOMA (SEE COMMENT). . B. "Omentum": - Benign omental fat. [facility]/04/11/2018 . 02 Comment: Surgical Pathology Cancer Case Summary . Protocol posting date: July 2016 . COLON AND RECTUM: . Procedure ___ Right hemicolectomy . Tumor Site ___ Cecum . Tumor Size Greatest dimension: 5.0 X 4.0 cm Macroscopic Tumor Perforation ___ Not identified . Histologic Type ___ [place] [address] PATHOLOGY RPT PROCEDURE Name: KIANNA HIDALGO [place] Room: [address] IN [facility]#: [id number] Admission: 04/02/18 Date of : 51 Discharge: Report #: [id number] Path Case #: [id number] Histologic Grade ___ G3: Poorly-differentiated . Tumor Extension ___ Tumor directly invades adjacent structures: Lateral abdominal wall and second part duodenum . Margins . Proximal Margin ___ Uninvolved by invasive carcinoma Distance of tumor from margin: Greater than 5 cm . Distal Margin ___ Uninvolved by invasive carcinoma Distance of tumor from margin: Greater than 5 cm . Mesenteric Margin ___ Uninvolved by invasive carcinoma . Other Margin ___ Involved by invasive carcinoma . Treatment Effect: ___ No known presurgical therapy . Lymphovascular Invasion ___ Present: large vessel (venous) invasion, extramural . + Perineural Invasion + ___ Not identified . Tumor Deposits ___ Not identified . Regional Lymph Nodes . Number of Lymph Nodes Involved: At least six . Number of Lymph Nodes Examined: At least eleven . . PATHOLOGIC STAGE CLASSIFICATION (pTNM, AJCC 8TH EDITION) . Primary Tumor (pT) ___ pT4b: Tumor invades visceral peritoneum (serosa) or other organs or other adjacent structures . Regional Lymph Nodes (pN) [place] [address] PATHOLOGY RPT PROCEDURE Name: KIANNA HIADLGO Room: [address] IN [facility]#: [id number] Admission: 04/02/18 Date of : 51 Discharge: Report #: [id number] Path Case #: [id number] ___ pN2a: Four to six regional lymph node are positive . + Additional Pathologic Findings + ___ Other: Dilated benign appendix . Ancillary studies: . MICROSATELLITE INSTABILITY REPORT (MSI): . Mismatch repair (MMR) protein immunohistochemical staining was performed: . Specimen:Formalin fixed paraffin embedded tissue Specimen ID:[id number] Reason for testing:To evaluate for evidence of defective mismatch repair proteins. Method:Immunohistochemical staining for the presence or absence of protein expression of one or more of the following MMR protein markers: MLH1, MSH2, MSH6 and PMS2. Tumor type:Adenocarcinoma . Results: MLH1 -Preserved MSH2 -Preserved MSH6 -Preserved PMS2 -Preserved . Mismatch Repair Status:MMR Proficient (MMR-P) . Interpretation: . (MMR-P) All four MMR proteins are preserved within tumor cells. This suggests the presence of normal DNA mismatch repair function within the tumor and an observable defect in mismatch repair is not identified. The likelihood that this patient has an inherited germline mutation syndrome due to defective mismatch repair is reduced but not totally eliminated. If the patient has a strong personal or family history of HPNCC/Mclean syndrome related cancers (colorectal, endometrial, gastric, ovarian, pancreatic, ureter/renal pelvis, biliary tract, brain, small bowel and Mays-Jim syndrome), consider MSI testing by PCR methodology. Suggest clinical correlation and follow up. . . . The possible lymph node candidate submitted in A20-A21 represents a large focus of tumor extending into fat and it is not certain if this represents an obliterated lymph node or possible direct extension of the tumor and therefore the lymph node status is qualified as "at least" six of "at least" eleven lymph nodes involved such that the lymph node stage may be higher (pN2b) if it is indeed [place] [address] PATHOLOGY RPT PROCEDURE Name: KIANNA HIDALGO Room: [address] IN ..#: [id number] Admission: 04/02/18 Date of : 51 Discharge: Report #: [id number] Path Case #: [id number] vessel invasion is noted in A6 and there are also smaller foci of lymphovascular invasion identified. The tumor is predominantly moderately differentiated however in several areas at the invasive front it is more poorly differentiated. . (LAURITA:pit 04/11/2018) . 02 Electronically signed: . Benny Solis MD, Pathologist NPI- [id number] . 01 Gross description: . A. Received fresh in the operating room accompanied by a label marked "Kianna Hidalgo, right colon" is a distorted segment of bowel in which one portion of surgical margin is recognizable by a linear arrangement of charlette although the opposite margin is not readily seen. An appendix is noted and the recognizable bowel is thought most likely to represent small intestine. Dr. Dangelo demonstrates the specimen for orientation purposes only. He notes this large tumor (previously biopsied) was adherent to the lateral abdominal wall where there is a transmural open defect (measuring 4.0 x 2.5 cm) and on the opposite aspect of the segment is an irregular transmural defect also exposing luminal tumor within (defect measuring 5.0 x 3.0 cm) and this defect was dissected away from the second part of the duodenum. The later defect (adherent to duodenum) is inked green around the surgical margin edge and the other defect edge is inked black. The specimen is submitted for formalin fixation prior to further examination. . (LAURITA:pit 04/11/2018) . The terminal ileum measures 5.0 cm in length and 2.8 cm in diameter, appendix (4.5 cm in length and 0.8 cm in diameter), cecum/ascending colon (12.0 cm in length and up to 7.0 cm in diameter), and omentum (15.8 x 11.0 cm). Both margins are closed with charlette. The pericolic fat measures up to 5.0 cm. The previously black inked transmural defect extends 7.0 cm from the proximal margin and 5.5 cm from the distal margin. The previously green inked transmural defect appears to obliterate the nearest mesenteric margin that is deep to the cecal mass. Opening reveals the cecal mass (5.0 x 4.3 cm) is circumferential, gould-brown, and fungating which obliterates the muscular wall, includes the ileocecal valve, and approaches both the black and green inked transmural defects. The serosa is inked orange and the nearest non-disrupted mesenteric margin blue. The mass extends greater than 5 cm from the proximal margin, greater than 5 cm from the distal margin, grossly abuts the serosa, and grossly approaches the non-disrupted mesenteric margin. The terminal ileum mucosa is gould with no masses or lesions. The ascending colon mucosa is pink-gould and edematous without any additional polyps or mass lesions. The appendix serosa is gould with focal adhesions with sectioning revealing a dilated lumen (up to 0.5 cm) containing brown fecal [place] [address] PATHOLOGY RPT PROCEDURE Name: KIANNA HIDALGO Room: [address] IN [facility]#: [id number] Admission: 04/02/18 Date of : 51 Discharge: Report #: [id number] Path Case #: [id number] lesions. The omentum reveals no nodules or lesions. Present within the pericolic fat are multiple lymph node candidates ranging from 0.2 cm to 1.8 cm with most being suspicious for malignancy. Exterior Door Installer sections are submitted as follows: . A1: Proximal margin A2: Distal margin A3-A4: Mass relationship to previously black inked transmural defect A5-A6: Mass relationship to previously green inked transmural defect A7: Blue inked mesenteric margin A8-A10: Mass relationship to orange inked serosa A11: Mass transition to distal mucosa A12: Mass transition to terminal ileum mucosa A13: Appendix A14: Omentum A15-A16: Largest lymph node candidate, serially sectioned A17: 2 bisected lymph node candidates, one inked black A18: One trisected candidate A19: Multiple intact lymph node candidates A20-A21: One possible candidate, serially sectioned A22: 2 bisected candidates, one inked black . B. The specimen is received in formalin, labeled "Darius, Kianna, omentum" and consists of omentum measuring 17.0 x 10.6 x 1.0 cm. Sectioning reveals no nodules or mass lesions and sales representative marine supplies sections are submitted in B1-B2. (SDY; 04/07/2018) SYU/SYU . 02 Pathologist provided ICD-10: C18.0, C77.2 . 02 CPT . 081917, 190592, T01035, U29138 Specimen Comment: A courtesy copy of this report has been sent to Specimen Comment: [phone], , . Specimen Comment: Report sent to / DR VICTOR Performed at: [address], [place], [place] [id number] MD Dhaval Miller MD Phone: [phone] Performed at: 02 [facility] [address], [place], [place] [id number] MD Benny Solis MD Phone: [phone]
[2018-04-11 20:00] VITALS: BP 117/72
[2018-04-12 00:42] VITALS: BP 126/65
[2018-04-12 04:10] VITALS: BP 130/65
--- NOTE | 2018-04-12 05:02 | NUR ---
ASSUMED CARE OF PT AFTER REPORT AT 1930. PT A&OX4. VSS. PHSYICAL ASSESSMENT COMPLETED AND CHARTED. PT ON RA WITH 98% O2 SAT. PT TRACING SR ON TELE. PT COMMPLAINED OF GENERALIZED ABDOMINAL PAIN- PAIN MEDS GIVEN PER APR. PT WITH MCCOY TO DEPENDENT DRAIN. PT WITH PICC LINE TO RIGHT UPPER ARM PATENT & INTACT. PT RESTED WELL ON BED. CALL LIGHT WITHIN REACH.
[2018-04-12 05:50] LABS: HEMOGLOBIN 8.4 gm/dL (12.0-15.0); MCH 24.4 pg (26.0-34.0); MPV 8.4 fl. (7.2-11.1); NUCLEATED RBCS 0 /100WBC; RBC 3.43 mil/uL (4.20-5.00); RDW-CV 30.9 % (10.5-14.5); WBC 11.5 thou/uL (4.0-11.0)
[2018-04-12 06:04] LABS: MCV 78.9 fL (80.0-100.0); PLATELET COUNT* 200 thou/uL (150-400)
[2018-04-12 06:14] LABS: ALBUMIN 1.2 g/dL (3.4-5.0); ALKALINE PHOSPHATASE 57 U/L (46-116); BUN 12 mg/dL (7-18); CALCIUM 7.1 mg/dL (8.5-10.1); CHLORIDE 109 mmol/L (98-107); CO2 24 mmol/L (21-32); CREATININE 0.6 mg/dL (0.6-1.3); GLUCOSE 87 mg/dL (70-99); MAGNESIUM 1.4 mg/dL (1.8-2.4); SGOT 10 U/L (15-37); TOTAL BILIRUBIN 0.6 mg/dL (<0.1-1.0); TOTAL PROTEIN 4.6 g/dL (6.4-8.2)
[2018-04-12 06:24] LABS: SGPT < 6 U/L (30-65)
[2018-04-12 06:26] LABS: ANION GAP 8 mmol/L (7-16); POTASSIUM 2.7 mmol/L (3.5-5.1); SODIUM 141 mmol/L (136-145)
[2018-04-12 06:53] LABS: ABSOLUTE EOSINOPHILS 0.2 thou/uL (0.0-0.7); ABSOLUTE MONOCYTES 0.5 thou/uL (0.0-1.2); ABSOLUTE NEUTROPHILS 9.8 thou/uL (1.6-8.1); ANISOCYTOSIS 2+; ATYPICAL LYMPHS 4 %; HYPOCHROMASIA 1+; PLATELET ESTIMATE ADEQUATE
[2018-04-12 07:30] VITALS: BP 104/64
[2018-04-12 11:55] VITALS: BP 120/69
--- NOTE | 2018-04-12 12:26 | NUR ---
REHAB CONSULT RECEIVED AND ACKNOWLEDGED BY BREAKER OILER AND DR ARANDA. PT S/P COMPLEX HEMICOLECTOMY AND ADENOCARCINOMA. PT WAS INDEPENDENT PRIOR TO HOSPITALIZATION WITH GOOD FAMILY SUPPORT AND PLANS TO RETURN HOME. WILL FOLLOW. THANK YOU
--- NOTE | 2018-04-12 13:08 | NUR ---
CM spoke with Pt regarding disposition plans, would like for Pt to dc to acute rehab. CM informed Pt that she will need to participate with therapies whenever they come for a visit. Per , Pt should be ready to dc on Wednesday.
[2018-04-12 15:56] VITALS: BP 123/70
[2018-04-12 20:00] VITALS: BP 123/71
[2018-04-12 23:04] LABS: CALCIUM 7.4 mg/dL (8.5-10.1); CREATININE 0.8 mg/dL (0.6-1.3); MAGNESIUM 1.4 mg/dL (1.8-2.4)
[2018-04-13] VITALS: BP 110/65
[2018-04-13 04:00] VITALS: BP 115/69
[2018-04-13 05:13] LABS: ABSOLUTE BASOPHILS 0.1 thou/uL (0.0-0.2); ABSOLUTE EOSINOPHILS 0.1 thou/uL (0.0-0.7); ABSOLUTE NEUTROPHILS 8.6 thou/uL (1.6-8.1); BASOPHILS 0.5 %; EOSINOPHILS 1.1 %; HEMOGLOBIN 8.9 gm/dL (12.0-15.0); LYMPHOCYTES 8.9 %; MCH 24.8 pg (26.0-34.0); MCHC 31.8 g/dL (28.0-37.0); MCV 78.1 fL (80.0-100.0); MONOCYTES 9.6 %; MPV 8.5 fl. (7.2-11.1); NUCLEATED RBCS 0 /100WBC; PLATELET COUNT* 255 thou/uL (150-400); POLYS 79.9 %; RBC 3.59 mil/uL (4.20-5.00); WBC 10.8 thou/uL (4.0-11.0)
[2018-04-13 05:29] LABS: ALBUMIN 1.2 g/dL (3.4-5.0); ALKALINE PHOSPHATASE 67 U/L (46-116); ANION GAP 5 mmol/L (7-16); BUN 11 mg/dL (7-18); CALCIUM 7.4 mg/dL (8.5-10.1); CHLORIDE 108 mmol/L (98-107); CO2 24 mmol/L (21-32); CREATININE 0.7 mg/dL (0.6-1.3); GLUCOSE 97 mg/dL (70-99); POTASSIUM 3.9 mmol/L (3.5-5.1); SGOT 12 U/L (15-37); SGPT < 6 U/L (30-65); SODIUM 137 mmol/L (136-145); TOTAL BILIRUBIN 0.5 mg/dL (<0.1-1.0); TOTAL PROTEIN 4.9 g/dL (6.4-8.2)
[2018-04-13 05:47] LABS: MAGNESIUM 1.8 mg/dL (1.8-2.4)
--- NOTE | 2018-04-13 05:54 | NUR ---
ASSUMED CARE OF PT AFTER REPORT AT 1930. PT A&OX4. VSS. PHYSICAL ASSESSMENT COMPLETED AND CHARTED. PT ON RA WITH 96% O2 SAT. PT TRACING SR ON TELE. PT COMPLAINED OF ABDOMINAL & LOWER BACK PAIN- PAIN MEDS GIVEN PER APR. RIGHT UPPER ARM PICC LINE PATENT & INTACT. PT WITH MCCOY TO DEPENDENT DRAIN. RECHECKED MAGNESIUM OF 1.4- ELECTROLYTE PROTOCOL IN PLACE. CALL LIGHT WITHIN REACH. BED IN LOW POSITION.
[2018-04-13 06:14] LABS: PHOSPHORUS* 1.7 mg/dL (2.5-4.9)
[2018-04-13 07:30] VITALS: BP 126/67
[2018-04-13 12:00] VITALS: BP 125/78
[2018-04-13 16:00] VITALS: BP 124/78
[2018-04-13 17:45] LABS: BODY FLUID CREATININE 2.5
[2018-04-13 20:00] VITALS: BP 115/60
[2018-04-14] VITALS: BP 108/65
[2018-04-14 04:00] VITALS: BP 109/71
[2018-04-14 04:53] LABS: HEMATOCRIT 27.3 % (37.0-47.0); HEMOGLOBIN 8.5 gm/dL (12.0-15.0); MCH 24.3 pg (26.0-34.0); MCHC 31.1 g/dL (28.0-37.0); MCV 78.2 fL (80.0-100.0); MPV 8.6 fl. (7.2-11.1); RBC 3.49 mil/uL (4.20-5.00); RDW-CV 31.2 % (10.5-14.5); WBC 12.4 thou/uL (4.0-11.0)
[2018-04-14 05:14] LABS: ALBUMIN 1.1 g/dL (3.4-5.0); ALKALINE PHOSPHATASE 72 U/L (46-116); ANION GAP 8 mmol/L (7-16); BUN 11 mg/dL (7-18); CALCIUM 7.4 mg/dL (8.5-10.1); CHLORIDE 107 mmol/L (98-107); CO2 23 mmol/L (21-32); CREATININE 0.7 mg/dL (0.6-1.3); GLUCOSE 101 mg/dL (70-99); MAGNESIUM 1.7 mg/dL (1.8-2.4); PHOSPHORUS* 2.2 mg/dL (2.5-4.9); POTASSIUM 3.6 mmol/L (3.5-5.1); SGOT 11 U/L (15-37); SGPT < 6 U/L (30-65); SODIUM 138 mmol/L (136-145); TOTAL BILIRUBIN 0.4 mg/dL (<0.1-1.0); TOTAL PROTEIN 4.9 g/dL (6.4-8.2)
--- NOTE | 2018-04-14 05:35 | NUR ---
ASSUMED CARE OF PT AFTER REPORT AT 1930. PT A&OX4. VSS. PHYSICAL ASSESSMENT COMPLETED AND CHARTED. PT ON RA WITH 99% O2 SAT. PT TRACING SR ON TELE. PT UP WITH 1 ASSIST TO BSC. PT COMPLAINED OF ABDOMINAL & LOWER BACK PAIN- PAIN MEDS GIVEN PER APR. PT WITH MCCOY TO DEPENDENT DRAIN. PICC TO RIGHT ARM PATENT & INTACT. CALL LIGHT WITHIN REACH. FALL PRECAUTIONS IN PLACE.
[2018-04-14 08:00] VITALS: BP 134/78
--- NOTE | 2018-04-14 10:23 | NUR ---
CM contacted [facility] acute rehab to check bed availability and to see if they would accept a Pt that is medicaid pending. DAT spoke with Leanna, retail banking manager, Leanna informed that they currently do not have any beds available and have a wait list, anticipate that they may have a bed available the middle of next week, at which time they will start contacting people on the wait list. CM faxed the referral and asked that Pt be placed on the wait list. [facility] acute rehab p:[phone] f:[phone]
--- NOTE | 2018-04-14 12:29 | NUR ---
assumed pt care report received from nurse. pt is aox4 sr on personnel monitor. on ra. and saturation is 98%. complains of pain level 7 in her abdomen. pain pill given. dilaudid given as well. pt out of bed to chair with nurse.now in chair eating lucnh received iv abx. fernandez in place. RADHA in place. RADHA dressing charged. pt says she feels weak. legs elevated. nurse spoke with urology dr De Luna who instructed to leave fernandez in place as well as RADHA. will continue to monitor
--- NOTE | 2018-04-14 15:43 | NUR ---
RADHA FLUID CLLECTED AND SENT TO LAB. PT RETURNED IN BED AT 1400 PT WORKED WITH PT IN THE BED. NISSA CONTINUE TO MONITOR
--- NOTE | 2018-04-14 16:38 | NUR ---
PT LEFT FLOOR AT 1625 ACCOMPANIED BY NURSING STAFF ON BED. REPORT GIVEN TO MICHAEL PERRY. PT IS NOW IN ROOM 106.
--- NOTE | 2018-04-14 17:00 | NUR ---
PATIENT ARRVED ON UNIT FROM [facility] AT 1645. COMPLETED ASSESSMENT. AGREE WITH PREVIOUS NURSE ASSESSMENT. GAVE PAIN MEDS FOR PAIN, PAIN WELL CONTROLLED. ABDOMINAL BINDER IN PLACE. RADHA DRAIN INTACT. MCCOY INTACT. COMPLETED HOURLY ROUNDING, CALL LIGHT WITHIN REACH. WILL CONTINUE TO MONITOR.
[2018-04-14 20:45] VITALS: BP 131/71
[2018-04-15 02:00] VITALS: BP 150/82
[2018-04-15 05:42] LABS: HEMATOCRIT 25.5 % (37.0-47.0); HEMOGLOBIN 7.9 gm/dL (12.0-15.0); MCH 24.4 pg (26.0-34.0); MCV 78.8 fL (80.0-100.0); MPV 8.3 fl. (7.2-11.1); RBC 3.23 mil/uL (4.20-5.00); RDW-CV 30.7 % (10.5-14.5); WBC 13.9 thou/uL (4.0-11.0)
[2018-04-15 05:49] LABS: CALCIUM 7.3 mg/dL (8.5-10.1); CREATININE 0.5 mg/dL (0.6-1.3); MAGNESIUM 2.2 mg/dL (1.8-2.4); PHOSPHORUS* 2.4 mg/dL (2.5-4.9); POTASSIUM 3.6 mmol/L (3.5-5.1)
[2018-04-15 07:30] VITALS: BP 143/73
[2018-04-15 08:08] LABS: BODY FLUID CREATININE 1.3 mg/dL (())
--- NOTE | 2018-04-15 08:34 | NUR ---
PATIENT HAS SLEPT WELL THROUGHOUT MOST OF THE NIGHT. VSS ON RA. PAIN CONTROLLED WITH IV PAIN MEDICATION AND CHARTED. PATIENT HAS REMAINED NPO. DRESSING TO MIDLINE INTACT AND INCISION IS WELL APPROXIMATED. BINDER IN PLACE. RADHA DRAIN IN PLACE WITH MINIMAL GREENISH COLORED DRAINAGE. PICC TO RIGHT UPPER ARM-LR @ 100ML/HR. MCCOY TO DEPENDENT DRAINAGE WITH TOM COLORED URINE OUTPUT. FAMILY AT BEDSIDE. PATIENT INSTRUCTED TO USE CALL LIGHT WHEN NEEDING ASSISTANCE. HOURLY ROUNDS MADE. WILL CONTINUE WITH PLAN OF CARE AND NURSING TO MONITOR.
[2018-04-15 16:57] VITALS: BP 143/73
[2018-04-15 17:02] VITALS: BP 143/73
--- NOTE | 2018-04-15 17:32 | NUR ---
ASSUMED CARE OF PATIENT AT APPROX 0730. ALERT AND ORIENTED X4. ASSESSMENT COMPLETED AND CHARTED. VSS ON ROOM AIR. NO COMPLAINTS OF NAUSEA OR SOA. PAIN HAS BEEN MANAGED WITH IV PAIN MEDICATION. FLUIDS AND ANTIBIOTICS INFUSED ORDERED. RADHA DRAIN IN RLQ IS PUTTING OUT DARK GREEN TO BROWN DRAINAGE. SURGERY SENT PATIENT TO IR TO PUT IN ANOTHER DRAIN THIS AFTERNOON. PATIENT UP TO CHAIR TODAY AND WORKED WITH THERAPIES WELL. SUPPORTIVE FAMILY AT BEDSIDE THROUGHOUT SHIFT. PATIENT TO ARRIVE BACK TO UNIT IN APPROX 20 MINUTES THEN WILL MOVE TO ROOM 317 WITH THIS NURSE. FALL PRECAUTIONS IN PLACE AND MAINTAINED THIS SHIFT. HOURLY ROUNDS COMPLETED. NURSING WILL CONTINUE TO MONITOR.
[2018-04-15 20:00] VITALS: BP 147/64
[2018-04-16 06:12] LABS: HEMATOCRIT 22.6 % (37.0-47.0); MCH 24.5 pg (26.0-34.0); MCHC 31.1 g/dL (28.0-37.0); MCV 78.7 fL (80.0-100.0); MPV 7.7 fl. (7.2-11.1); RBC 2.87 mil/uL (4.20-5.00)
[2018-04-16 06:21] LABS: ALKALINE PHOSPHATASE 110 U/L (46-116); ANION GAP 5 mmol/L (7-16); BUN 9 mg/dL (7-18); CALCIUM 7.3 mg/dL (8.5-10.1); CHLORIDE 108 mmol/L (98-107); CO2 27 mmol/L (21-32); CREATININE 0.5 mg/dL (0.6-1.3); GLUCOSE 80 mg/dL (70-99); MAGNESIUM 1.6 mg/dL (1.8-2.4); PHOSPHORUS* 2.9 mg/dL (2.5-4.9); POTASSIUM 3.5 mmol/L (3.5-5.1); SGOT 13 U/L (15-37); SGPT < 6 U/L (30-65); SODIUM 140 mmol/L (136-145); TOTAL BILIRUBIN 0.3 mg/dL (<0.1-1.0); TOTAL PROTEIN 4.6 g/dL (6.4-8.2)
--- NOTE | 2018-04-16 06:42 | NUR ---
PATIENT HAS SLEPT WELL THROUGHOUT THE NIGHT. VSS ON RA. PAIN CONTROLLED WITH IV PAIN MEDICATION AND CHARTED. RADHA DRAIN IN PLACE WITH MODERATE AMOUNT OF GREENISH/BROWN DRAINAGE. GRAVITY DRAIN IN PLACE WITH MINIMAL GREENISH/BROWN DRAINAGE. DRESSING TO ABDOMINAL AREA IS C/D/I AND BINDER IN PLACE. PICC LINE TO RIGHT UPPER ARM-TPN INFUSING @ 40ML/HR. IV ABT GIVEN ORDERED AND CHARTED. SON AT BEDSIDE DURING THE NIGHT. PATIENT INSTRUCTED TO USE CALL LIGHT WHEN NEEDING ASSISTANCE. HOURLY ROUNDS MADE. WILL CONTINUE WITH PLAN OF CARE AND NURSING TO MONITOR.
[2018-04-16 08:10] VITALS: BP 143/70
--- NOTE | 2018-04-16 14:52 | NUR ---
NOTIFIED TO REPLACE PICC. DISCUSSED WITH THE PATIENT AND FAMILY. CONSENT AND ORDER NOTED. A #5F TRIPLE LUMEN POWER PICC WAS PLACED AFTER A BEDSIDE TIMEOUT WAS COMPLETE PER HOSPITAL POLICY. LINE TRIMMED TO 36CM AND ADVANCED WITHOUT DIFFICULTY. LINE CONFIRMED AT 0CM EXTERNAL USING 3CG. LINE SECURED AND RELEASED FOR USE
[2018-04-16 16:45] VITALS: BP 151/47
--- NOTE | 2018-04-16 17:41 | NUR ---
ASSUMED CARE OF APTIENT AT APPROX 0730. ALERT AND OREINTED X4. ASSESSMENT COMPLETED AND CHARTED. VSS ON ROOM AIR. NO COMPLAINTS OF NAUSEA OR SOA. PAIN HAS BEEN MANAGED WITH IV MEDICATION. TPN, ANTIBIOTICS AND ELECTROLYTE REPLACEMENT INFUSED ORDERED.PERIPHERAL ACCESS STARTED ON THE LEFT HAND FOR INFUSING MULTIPLE ANTIBIOTICS. SINGLE LUMAN PICC REPLACED WITH A TRIPLE LUMEN THIS AFTERNOON. PATIENT UP TO THE CHAIR TODAY WITH MAX ASSISTS AND GIVEN FULL BED BATH. PATIENT FELT VERY WEAK UPON TRANSFERRING BUT DID STAY UP IN THE CHAIR ALL AFTERNOON. DRESSING CHANGED AROUND DRAIN ACCESS. MIDLINE INCISION COVERED WITH ABD DRESSING AFTER BATHING. FALL PRECAUTIONS IN LACE. CALL LIGHT WITHIN REACH. HOURLY ROUNDS COMPLETED. NURSING WILL CONTINUE TO MONITOR.
[2018-04-16 21:05] VITALS: BP 144/70
[2018-04-17 04:15] LABS: HEMATOCRIT 22.7 % (37.0-47.0); HEMOGLOBIN 7.1 gm/dL (12.0-15.0); MCH 24.9 pg (26.0-34.0); MCHC 31.4 g/dL (28.0-37.0); MCV 79.4 fL (80.0-100.0); MPV 7.5 fl. (7.2-11.1); RBC 2.86 mil/uL (4.20-5.00); RDW-CV 29.7 % (10.5-14.5); WBC 9.3 thou/uL (4.0-11.0)
[2018-04-17 04:52] LABS: CALCIUM 7.6 mg/dL (8.5-10.1); CREATININE 0.5 mg/dL (0.6-1.3); POTASSIUM 3.5 mmol/L (3.5-5.1)
--- NOTE | 2018-04-17 04:58 | NUR ---
PT SLEPT ON AND OFF THIS SHIFT. ASSESSMENT DOCUMENTED. MEDS GIVEN PER E-MAR. PICC PATENT, TPN INFUSING. PT ASKING IF SHE CAN HAVE HARD CANDY. PAIN MEDS GIVEN PER E-MAR WITH LITTLE RELIEF. ABD BINDER IN PLACE. DRAINS IN PLACE. FAMILY AT BEDSIDE. WILL CONTINUE WITH PLAN OF CARE.
[2018-04-17 09:55] VITALS: BP 138/58
[2018-04-17 15:50] VITALS: BP 138/78
[2018-04-17 16:12] LABS: SOURCE JP DRAIN
--- NOTE | 2018-04-17 18:18 | NUR ---
ASSUMED CARE OF PT AT 0700. PT REMAINS NPO. UP TO RECLINER WITH ASSIST X2, WEAKNESS NOTED. 1400 PT RECEIVED LASIX 40MG D/T SWELLING. PT PAIN TOLERABLE WITH HYDROMORPHONE Q2H PRN. PT ABLE TO MAKE NEEDS KNOWN.
[2018-04-17 22:30] VITALS: BP 128/70
[2018-04-18 05:18] LABS: ABSOLUTE EOSINOPHILS 0.1 thou/uL (0.0-0.7); ABSOLUTE LYMPHOCYTES 0.8 thou/uL (0.8-5.3); ABSOLUTE MONOCYTES 0.6 thou/uL (0.0-1.2); ABSOLUTE NEUTROPHILS 6.1 thou/uL (1.6-8.1); BASOPHILS 0.6 %; EOSINOPHILS 0.9 %; HEMATOCRIT 23.1 % (37.0-47.0); HEMOGLOBIN 7.3 gm/dL (12.0-15.0); LYMPHOCYTES 10.9 %; MCH 27.2 pg (26.0-34.0); MCHC 31.4 g/dL (28.0-37.0); MONOCYTES 7.5 %; NUCLEATED RBCS 0 /100WBC; PLATELET COUNT* 425 thou/uL (150-400); POLYS 80.1 %; RBC 2.68 mil/uL (4.20-5.00); RDW-CV 31.2 % (10.5-14.5); WBC 7.6 thou/uL (4.0-11.0)
[2018-04-18 05:25] LABS: MCV 86.4 fL (80.0-100.0)
--- NOTE | 2018-04-18 06:56 | NUR ---
PT AWAKE MUCH OF THE NIGHT, SLEEPING AFTER PAIN MED FOR A BIT AND THEN AWAKE AGAIN PT DTR REPORTS. ACCUCHECK 123, AM LABS PENDING WITH MORNING GLUCOSE. RTL PICC TPN INFUSING PER PUMP AT 75, ABX GIVEN ORDERED. MCCOY DRAINING YELLOW URINE. ABD BINDER INPLACE, ABD DRSG CDI. RADHA DRAIN WITH 10 ML GREENISH BROWN DRAINAGE, GRAVITY DRAINAGE BAG WITH 140ML GREENISH BROWN DRAINAGE THIS SHIFT. NPO EXCEPT GUM AND HARD CANDY. IV PAIN MED GIVEN PRN FOR CO ABD AND BACK PAIN WITH FAIR RELIEF-DID NOT WANT TO TAKE LORAZEPAM FOR SLEEP AIDE. DNR. FAMILY MEMBER AT BEDSIDE. ABLE TO USE CALL LITE AND MAKE NEEDS KNOWN.
[2018-04-18 06:58] LABS: PLATELET ESTIMATE INCREASED
[2018-04-18 06:59] LABS: HYPOCHROMASIA 2+; OVALOCYTES 1+; POLYCHROMASIA 1+; TEARDROPS 1+
[2018-04-18 07:00] LABS: ANISOCYTOSIS 2+; MACROCYTES 2+; MICROCYTES Occasional; POIKILOCYTOSIS 2+
[2018-04-18 07:18] LABS: ALBUMIN 1.2 g/dL (3.4-5.0); CALCIUM 7.6 mg/dL (8.5-10.1); CREATININE 0.5 mg/dL (0.6-1.3); POTASSIUM 3.7 mmol/L (3.5-5.1); TOTAL BILIRUBIN 0.2 mg/dL (<0.1-1.0); TOTAL PROTEIN 5.4 g/dL (6.4-8.2)
[2018-04-18 07:55] VITALS: BP 146/71
--- NOTE | 2018-04-18 16:19 | NUR ---
ASSESSMENT COMPLETE. PT IS ALERT AND ORIENTED X4. PT SAD MOOD MOST OF THE DAY. PT UP IN CHAIR WITH PHYSICAL THERAPY THIS AM. PT HAS TPN INFUSING, STRICT NPO AT THIS TIME. PT GIVEN PRN PAIN MEDICATION MULTIPLE TIMES THROUGHOUT THE DAY, PT REPORTS PARTIAL RELIEF. PT REPORTS UNABLE TO SLEEP FOR DAYS, REFUSING ATIVAN AND SLEEPING MEDICATION. MCCOY IN PLACE WITH [place]DEQA[place] OUTPUT. EDEMA NOTED TO BLE, ELEVATED WITH PILLOWS. BLE ULTRASOUND NEGATIVE FOR DVT. PT IS ON ROOM AIR, VSS. PICC IN RIGHT UPPER ARM, DRAWS AND FLUSHES WITHOUT DIFFICULTY, DRESSING INTACT. MIDLINE INCISION WITH TIFFANIE DRY, INTACT, NO REDNESS. 2 DRAINS NOTED TO RLQ. PT IS Q2 TURN. SEE ASSESSMENT AND VITALS FOR OTHER DETAILS. CALL LIGHT WITHIN REACH, WILL CONTINUE PLAN OF CARE
[2018-04-18 16:26] VITALS: BP 138/76
[2018-04-19] VITALS: BP 129/69
--- NOTE | 2018-04-19 06:53 | NUR ---
PT SLEPT AFTER PAIN MEDS BUT AWAKE OFF AND ON OVERNIGHT. RECEIVING IV PAIN MED, PREFERS DILAUDID OVER FENTANYL FOR BETTER PAIN CONTROL. RADHA DRAIN WITH SCANT AMOUNT GREEN BROWN DRAINAGE, GRAVITY DRAIN BAG WITH 60MLS GREENISH BROWN THICK DRAINAGE. MCCOY WITH 1600 YELLOW URINE OUTPUT. ACCUCHECKS Q 6 HOURS, TPN INFUSING PER PUMP, ABX GIVEN ORDERED. AM LAB DRAWN, MARICHUY HESS PICC. AO, ABLE TO USE CALL LITE AND MAKE NEEDS KNOWN.NPO EXCEPT GUM AND HARD CANDY. ABD BINDER ON, MIDLINE TIFFANIE WITH DRSG CDI.
[2018-04-19 07:02] LABS: ABSOLUTE BASOPHILS 0.1 thou/uL (0.0-0.2); ABSOLUTE EOSINOPHILS 0.1 thou/uL (0.0-0.7); ABSOLUTE LYMPHOCYTES 0.9 thou/uL (0.8-5.3); ABSOLUTE MONOCYTES 0.7 thou/uL (0.0-1.2); ABSOLUTE NEUTROPHILS 7.3 thou/uL (1.6-8.1); BASOPHILS 0.7 %; HEMATOCRIT 20.7 % (37.0-47.0); LYMPHOCYTES 10.2 %; MCH 25.1 pg (26.0-34.0); MCHC 31.6 g/dL (28.0-37.0); MONOCYTES 7.5 %; MPV 7.7 fl. (7.2-11.1); NUCLEATED RBCS 0 /100WBC; PLATELET COUNT* 430 thou/uL (150-400); POLYS 80.6 %; RBC 2.61 mil/uL (4.20-5.00); RDW-CV 29.8 % (10.5-14.5); WBC 9.1 thou/uL (4.0-11.0)
[2018-04-19 07:12] LABS: CALCIUM 7.8 mg/dL (8.5-10.1); CREATININE 0.5 mg/dL (0.6-1.3); POTASSIUM 3.6 mmol/L (3.5-5.1)
[2018-04-19 07:15] LABS: MCV 79.3 fL (80.0-100.0)
[2018-04-19 07:17] LABS: HEMOGLOBIN 6.5 gm/dL (12.0-15.0)
[2018-04-19 07:30] VITALS: BP 126/62
[2018-04-19 08:38] LABS: LARGE PLATELETS FEW; PLATELET ESTIMATE INCREASED
[2018-04-19 08:39] LABS: ANISOCYTOSIS 2+; HYPOCHROMASIA Occasional; SCHISTOCYTES Occasional
[2018-04-19 08:40] LABS: MACROCYTES 1+
[2018-04-19 08:41] LABS: MICROCYTES 2+; POLYCHROMASIA 1+
[2018-04-19 10:55] VITALS: BP 128/70; BP 139/63; BP 141/68; BP 147/67; BP 160/67
--- NOTE | 2018-04-19 15:36 | NUR ---
ASSESSMENT COMPLETE. PT ALERT AND ORIENTED X4. PT GIVEN PRN PAIN MEDICATION THROUGHOUT THE DAY. PT HAD BLOOD TRANSFUSION FOR LOW HGB THIS AM, PT TOLERATED WITHOUT ANY COMPLICATIONS. PT IS ON ROOM AIR, VSS. DR VERNON ORDERED TO HAVE GRAVITY DRAIN FLUSHED WITH 10 ML QS. PT/OT WITH PATIENT TODAY. BED BATH GIVEN WITH OT. STRICT NPO, MAY HAVE HARD CANDY AND GUM. ACCU CHECK Q6H. TPN INFUSING. SEE ASSESSMENT AND VITALS FOR OTHER DETAILS. CALL LIGHT WITHIN REACH, WILL CONTINUE PLAN OF CARE
[2018-04-19 16:53] LABS: HEMATOCRIT 25.1 % (37.0-47.0); HEMOGLOBIN 8.2 gm/dL (12.0-15.0)
[2018-04-19 16:58] VITALS: BP 121/70
[2018-04-20 04:20] VITALS: BP 130/69
[2018-04-20 07:03] LABS: HEMATOCRIT 23.8 % (37.0-47.0); HEMOGLOBIN 7.7 gm/dL (12.0-15.0); MCH 25.8 pg (26.0-34.0); MCHC 32.5 g/dL (28.0-37.0); MCV 79.6 fL (80.0-100.0); MPV 7.4 fl. (7.2-11.1); RBC 2.99 mil/uL (4.20-5.00); RDW-CV 26.8 % (10.5-14.5)
--- NOTE | 2018-04-20 07:04 | NUR ---
PT AWAKE MUCH OF THE NIGHT, REQUESTING IV PAIN MED ABOUT EVERY 3 HOURS WITH GOOD RESULTS. RADHA AND GRAVITY DRAIN RLQ. GRAVITY DRAIN FLUSHED ORDERED. MCCOY DRAINING YELLOW URINE. TPN INFUSING PER PUMP MARICHUY PICC, ABX GIVEN ORDERED. ABLE TO USE CALL LITE AND MAKE NEEDS KNOWN. TURNED AND REPOSITIONED PT WOULD ALLOW FOR SKIN CARE AND COMFORT. DNR. ABD BINDER IN PLACE, MIDLINE ABD INCISION WITH TIFFANIE HEALING, DRSG CDI.
[2018-04-20 07:19] LABS: CALCIUM 7.9 mg/dL (8.5-10.1); CREATININE 0.5 mg/dL (0.6-1.3)
[2018-04-20 07:50] VITALS: BP 121/66
[2018-04-20 14:50] VITALS: BP 135/76
--- NOTE | 2018-04-20 15:22 | NUR ---
ASSESSMENT COMPLETE. PT ALERT AND ORIENTED X4. PT GIVEN PRN PAIN MEDICATION EVERY 2 HOURS DURING THE DAY. PT HAS MCCOY AND 2 DRAINS. MIDLINE INCISION WITH TIFFANIE INTACT AND DRY. ABDOMINAL BINDER IN PLACE. PT/OT WORKED WITH PATIENT TODAY. PT UP IN CHAIR FOR SOME OF THE DAY. TPN INFUSING. BLE EDEMA NOTED, ELEVATED WITH PILLOWS. Q2 TURN. SEE ASSESSMENT AND VITALS FOR OTHER DETAILS. WILL CONTINUE PLAN OF CARE
[2018-04-20 16:00] VITALS: BP 158/70
[2018-04-20 20:00] VITALS: BP 141/66
[2018-04-21 05:09] LABS: HEMATOCRIT 23.8 % (37.0-47.0); HEMOGLOBIN 7.6 gm/dL (12.0-15.0)
--- NOTE | 2018-04-21 05:16 | NUR ---
ASSUMED PATIENT CARE AT 1900. PATIENT RESTING IN BED, ALERT AND ORIENTED RIMES FOUR. INCISION SITE C/D/I, APPROXIMATED WELL. DRAINS AND MCCOY PATENT. PATIENT HAS STARTED TO KEEP A LOG OF TIMES FOR PAIN MEDICATION AND WILL CALL OUT Q2H REQUESTING PAIN MEDS. THIS IS A NEW BAHAVIOR FOR PATIENT AND USAGE OF MEDICATION IS TRENDING UP. NO DIFFERENCE NOTED TO TIME BETWEEN PATIENT CALLING OUT FOR MEDICATION WITH DOSE ADJUSTMENT OR MEDICATION CHANGE. PATIENT DID NOT SLEEP DURING THIS SHIFT, EVERYTIME RN WENT INTO ROOM, PATIENT WAS SITTING UP IN BED WITH LIGHTS ON. FAST FOOD ATTENDANT AND HOURLY ROUNDING COMPLETED CHARTED
--- NOTE | 2018-04-21 05:41 | NUR ---
ATTEMPTED PAIN MANAGEMENT EDUCATION WITH PATIENT. PATIENT STATES THAT SHE IS IN WORSE PAIN NOW THAN SHE WAS BEFORE OF AFTER HER SURGERY. MOSTLY COMPLAINTS OF LEG PAIN. EDUCATED PATIENT ON THE IMPORTANCE OF AROM FOR THE "CRAMPING" PAIN. PATIENT UNWILLING TO CONSIDER OTHER OPTIONS. REQUESTED THAT THE DR GIVE HER A MUSCLE RELAXER ALSO. ALSO EDUCATED PATIENT ON THE IMPOTANCE OF ATTEMPTING TO MANAGE ABDOMINAL BINDER AND BED MOBILITY ON HER OWN. PATIENT ONLY INCREASED PAIN COMPLAINTS.
[2018-04-21 08:00] VITALS: BP 141/62
--- NOTE | 2018-04-21 16:18 | NUR ---
SHIFT NOTE - PT REQUIRING IV PAIN MEDS THIS SHIFT. FAMILY PRESENT AT BEDSIDE FOR MOST OF SHIFT. PT PARTICIPATED WITH THERPIES. WILL CONTINUE TO MONITOR.
[2018-04-21 18:10] VITALS: BP 182/91
[2018-04-21 19:45] VITALS: BP 140/73
[2018-04-22 04:08] LABS: HEMATOCRIT 24.5 % (37.0-47.0); MCHC 32.5 g/dL (28.0-37.0); MCV 80.2 fL (80.0-100.0); MPV 7.5 fl. (7.2-11.1); RBC 3.06 mil/uL (4.20-5.00); RDW-CV 26.6 % (10.5-14.5); WBC 7.5 thou/uL (4.0-11.0)
[2018-04-22 04:16] LABS: CALCIUM 7.9 mg/dL (8.5-10.1); CREATININE 0.6 mg/dL (0.6-1.3); MAGNESIUM 1.8 mg/dL (1.8-2.4); POTASSIUM 4.1 mmol/L (3.5-5.1)
--- NOTE | 2018-04-22 05:25 | NUR ---
PT AWAKE MOST OF SHIFT. ASSESSMENT DOCUMENTED. MEDS GIVEN PER E-APR. PICC PATENT, TPN INFUSING. PAIN MEDS GIVEN PER E-MAR. PT ASKING FOR DILAUDED TO BE SWITCHED TO 1MG EVERY 2 HOURS INSTEAD OF 2MG EVERY 3HR. PT REFUSED TORDOL THIS SHIFT STATING THAT THE DR TOLD HER SHE CANNOT USE IT. PT REPORTED BEING RESTLESS ALL NIGHT, PT REFUSED ANY ANXIETY MEDICATIONS. PT REFUSED SCD'S THIS SHIFT STATING THAT THEY MADE HER LEGS TOO HOT. DRAINS IN PLACE, MCCOY DRAINING DEPENDANTLY. WILL CONTINUE WITH PLAN OF CARE.
[2018-04-22 08:00] VITALS: BP 151/77
[2018-04-22 14:54] VITALS: BP 155/65
--- NOTE | 2018-04-22 17:02 | NUR ---
Following for d/c planning needs. Reviewed chart and spoke at length with pt alone in the room. She states she does not want to continue treatment and is agreeable with stopping all care. Pt said she does not want to stay on the TPN if it is only going to prolong her suffering. Pt said she wants to return home on hospice. Spoke with pt and Eloise-I-L. Pt completed AD/LW this afternoon. Pt wants to have her son Chintan be her DPOA, with D-I-L Polly as alternate. Pt may also be interested in going to long term care social worker care facility. Explained that pt has Medicaid pending, so it may be difficult to find facility that will be able to accept, along with TPN. Called [facility] and vinay message. Called [facility] and they do not accept TPN in their building. Called [facility] and vinay griffin. Spoke with academic services coordinator at [facility] and faxed referral. Spoke with system administrator at [facility] and faxed referral. They will review information and call back Wednesday. Spoke with intake at [facility]. Pt's spouse was on service with [facility] prior to his in February. [facility] said they would need executive approval to accept someone who is Medicaid pending. Intake also said that they normally stop TPN after bag is complete that leaves the hospital. Hospice does not typically pay for TPN. Will await return calls from facilities re: possible admission. ORN [id number]
--- NOTE | 2018-04-22 20:10 | NUR ---
PATIENT HAS BEEN A/O X 4, SLIGHTLY IRRITABLE AT TIMES. MEDICATED FOR ABDOMINAL PAIN X 2 TODAY WITH PARTIAL RELIEF. GIVEN ATIVAN THIS AFTERNOON FOR AXIETY, SLEPT IN INTERVALS AFTER TAKING ATIVAN. HAD REPEAT CT SCAN COMPLETED, RESULTS TO SURGEONS. PATIENT ASSESSED BY DR CHARLTON THIS SHIFT FOR ABDOMINAL DRAIN, FLUSHED THIS SHIFT. RADHA DRAIN PATENT. MCCOY PATENT WITH GOOD UOP NOTED. PATIENT PARTICIPATED WITH PHYSICAL THERAPY THIS SHIFT. PARTIAL BED BATH GIVEN BY RN THIS SHIFT. PATIENT WEAK AND FATIGUES EASILY. PATIENT WITH SMEAR OF BM NOTED THIS SHIFT. REFUSING SCDS. REPOSITIONED THIS SHIFT WITH HEELS ELEVATED. FAMILY AT BEDSIDE AND INVOLVED IN PATIENT'S CARE. TPN AND IV ANTIBIOTICS CONTINUE TO INFUSE ORDERED. CM MET WITH PATIENT AND FAMILY THIS SHIFT. FALL PRECAUTIONS IN PLACE. HOURLY ROUNDING COMPLETED. CALL LIGHT WITHIN REACH. WILL CONTINUE WITH PLAN OF CARE.
[2018-04-23] VITALS: BP 140/72
[2018-04-23 04:27] LABS: HEMATOCRIT 23.6 % (37.0-47.0); HEMOGLOBIN 7.7 gm/dL (12.0-15.0); MCH 26.5 pg (26.0-34.0); MCHC 32.6 g/dL (28.0-37.0); MCV 81.3 fL (80.0-100.0); RBC 2.9 mil/uL (4.20-5.00); RDW-CV 26.4 % (10.5-14.5); WBC 6.8 thou/uL (4.0-11.0)
[2018-04-23 04:53] LABS: ALBUMIN 1.3 g/dL (3.4-5.0); CALCIUM 7.8 mg/dL (8.5-10.1); CREATININE 0.6 mg/dL (0.6-1.3); MAGNESIUM 1.8 mg/dL (1.8-2.4); POTASSIUM 3.9 mmol/L (3.5-5.1); TOTAL BILIRUBIN 0.2 mg/dL (<0.1-1.0)
--- NOTE | 2018-04-23 05:55 | NUR ---
PATIENT SLEPT WELL DURING THIS SHIFT. PT TURNED Q2H PER PROTOCAL. PT ON ROOM AIR. PT WITH TRIPLE LUMAN PICC IN UPPER RT ARM; LINES ARE PATENT. PT HAS TPN INFUSING AT 75ML/HR; ANTIBIOTICS ORDERED. PT WITH RADHA DRAIN WITH MINIMAL DRAINAGE; ALSO HAS ANIKA TUBE TO GRAVITY; FLUSED X2 DURING THIS SHIFT. PT WITH MIDLINE INCISION WITH ABDOMINAL BINDER IN PLACE. PT WITH EDEMA IN LOWER EXTREMITY. PT GIVEN DILUADID 1MG IV X2 FOR ABDOMINAL PAIN AND ATIVAN 0.25MG IV X1 FOR ANXIETY. FREQUENTLY USED ITEMS AND CALL LIGHT WITHIN REACH. SIDERAILS UPX4 PER FAMILY'S REQUEST. BED ALARM ON. WILL CONTINUE TO MONITOR.
[2018-04-23 08:20] VITALS: BP 147/68
--- NOTE | 2018-04-23 08:22 | NUR ---
PT C/O OF ABDOMINAL PAIN AND LEG PAIN. PRN PAIN MEDICATION ADMININSTERED PER EMAR. PT REPOSITIONED. SON AT BEDSIDE.
[2018-04-23 16:16] VITALS: BP 136/95
--- NOTE | 2018-04-23 18:34 | NUR ---
FENTANYL PATCH ORDERED PER AND ADMININSTERED PER APR. PRN PO MEDICATIONS ADMINISTERED TWO TIMES THIS SHIFT. PT AND FAMILY EDUCATED ON PO MEDICATIONS VERSUS IV MEDICATIONS. PT SAT IN CHAIR THIS SHIFT. PT ENCOURAGED TO MOVE AND WORK WITH THERAPY. LIDOCAINE PATCHED APPLIED TO BILATERAL CALVES PER PT REQUEST.
[2018-04-23 20:00] VITALS: BP 140/88
--- NOTE | 2018-04-24 05:21 | NUR ---
PATIENT SLEPT WELL DURING THIS SHIFT. PT REFUSING TURNS ON OCCASSION; EDUCATION GIVEN. PT WITH MIDLINE INCISION WITH BINDER. PT HAS RADHA DRAIN IN RT ABD AND DRAIN TO GRAVITY IN RT ABD WELL. GRAVITY DRAIN FLUSHED TWICE WITH 10ML NS. DRAINAGE IS THICK; YELLOW BROWN. PT WITH TPN INFUSING PER DR ORDER IN TRIPLE LUMAN IN RT UPPER ARM. ANTIBIOTICS INFUSING PER DR ORDER. PT REQUESTED PAIN MEDICATION X2 AND HYDROCODONE 2 TABS GIVEN EACH TIME. ABD PAIN RATED AT 6/10. LORAZEPAM 0.25MG IV GIVEN X2 FOR ANXIETY. PT ABLE TO RETURN TO SLEEP AFTER RECEIVING PAIN AND ANXIETY MEDS. PT REMAINS NPO; ABLE TO DO OWN MOUTH CARE. FREQUENTLY USED ITEMS AND CALL LIGHT WITHIN REACH. SIDERAILS UPX4 AND BED ALARM ON. WILL CONTINUE TO MONITOR.
[2018-04-24 05:54] LABS: HEMATOCRIT 23.1 % (37.0-47.0); HEMOGLOBIN 7.5 gm/dL (12.0-15.0); MCH 26.3 pg (26.0-34.0); MCHC 32.3 g/dL (28.0-37.0); MCV 81.2 fL (80.0-100.0); MPV 7.7 fl. (7.2-11.1); RBC 2.85 mil/uL (4.20-5.00); RDW-CV 25.8 % (10.5-14.5); WBC 6.8 thou/uL (4.0-11.0)
[2018-04-24 05:58] LABS: CREATININE 0.6 mg/dL (0.6-1.3); MAGNESIUM 1.7 mg/dL (1.8-2.4); POTASSIUM 3.9 mmol/L (3.5-5.1)
[2018-04-24 16:32] VITALS: BP 140/72
[2018-04-24 17:24] VITALS: BP 138/70
[2018-04-25] VITALS: BP 138/71
[2018-04-25 04:34] LABS: HEMATOCRIT 23.2 % (37.0-47.0); HEMOGLOBIN 7.6 gm/dL (12.0-15.0); MCH 26.9 pg (26.0-34.0); MCHC 32.9 g/dL (28.0-37.0); MCV 81.8 fL (80.0-100.0); RBC 2.83 mil/uL (4.20-5.00)
[2018-04-25 04:59] LABS: CREATININE 0.6 mg/dL (0.6-1.3); MAGNESIUM 1.9 mg/dL (1.8-2.4); POTASSIUM 3.9 mmol/L (3.5-5.1)
--- NOTE | 2018-04-25 05:23 | NUR ---
PATIENT AWAKE OFF AND ON DURING THIS SHIFT. FAMILY VISITING IN EVENGING THEN LEFT. DAUGHTER CAME AND STAYED THE NIGHT. PT IS ALERT/ORIENTED X4, FORGETFUL AT TIMES. TPN AND ANTIBIOTICS INFUSING PER DR ORDER IN TRIPLE LUMAN PICC IN RT UPPER ARM. ABLE TO DRAW/FLUSH ALL LINES. PT HAS RADHA DRAIN AND GRAVITY DRAIN WITH MINIMAL OUTPUT. PT HAS MCCOY CATHETER WITH YELLOW URINE. PT HAS MIDLINE INCISION WITH ABDOMINAL BINDER IN PLACE. PT ASSISTED WITH TURNS Q2H PER PROTOCAL BUT IS GETTING BETTER AT REPOSITIONING HERSELF. PT DOING ACTIVE LEG EXERCISES WHILE IN BED. PT HAS BEEN NPO BUT USES MOUTH SWABS. PT HAS BEEN NPO SINCE MIDNIGHT. PT REQUESTED PAIN MEDICATION FOR ABDOMINAL PAIN X2 AND HYDROCODONE 2 TABS GIVEN EACH TIME. PT ALSO HAS REQUESTED ATIVAN 0.25MG IV X1 FOR ANXIETY. PT DENIES NEEDS AT THIS TIME. FREQUENTLY USED ITEMS AND CALL LIGHT WITHIN REACH. SIDERAILS UPX4 AND BED ALARM ON. FREQUENTLY USED ITEMS AND CALL LIGHT WITHIN REACH. WILL CONTINUE TO MONITOR.
[2018-04-25 07:40] VITALS: BP 128/68
--- NOTE | 2018-04-25 13:11 | NUR ---
SPOKE WITH DR CAAL REGARDING MCCOY CATHETER. INSTRUCTED TO LEAVE MCCOY IN PLACE FOR NOW.
[2018-04-25 15:43] VITALS: BP 144/63
--- NOTE | 2018-04-25 17:48 | NUR ---
PATIENT HAS BEEN A/O X 4 THIS SHIFT. MEDICATED FOR ABDOMINAL PAIN X 2 WITH ORAL PAIN MEDS, RECEIVED IV PAIN MEDS X 1 AFTER RETURNING FROM IR. PATIENT HAD ABDOMINAL DRAIN EXCHANGED BY DR CHARLTON THIS SHIFT, CONTINUES TO DRAIN TO GRAVITY. UP TO CHAIR THIS AM AND THIS EVENING. MCCOY PATENT AND DRAINING, SPOKE TO UROLOGY EARLIER THIS SHIFT. RADHA DRAIN PATENT, DRESSING CHANGED AND MIDLINE DRESSING CHANGED BY SURGERY THIS SHIFT. ABDOMINAL BINDER IN PLACE. PATIENT REPOSITIONED EVERY 2 HOURS. TPN INFUSING TO TL PICC LINE, CONTINUES ON IV ANTIBIOTICS AND IV DIFLUCAN. FAMILY AT BEDSIDE THROGHOUT THE SHIFT. HOULRY ROUNDING COMPLETED. CALL LIGHT WITHIN REACH. WILL CONTINUE WITH PLAN OF CARE.
[2018-04-25 23:38] VITALS: BP 124/72
[2018-04-26 05:00] VITALS: BP 121/70
--- NOTE | 2018-04-26 06:12 | NUR ---
PT SLEPT OFF AND ON OVERNIGHT. MARICHUY TL PICC, TPN INFUSING PER PUMP AT 75ML/HR. RECEIVING ATIVAN AT CHANGE OF SHIFT WITH FAIR RESULT. MCCOY WITH 1400ML YELLOW URINE OUTPUT. RADHA DRAIN WITH SCANT AMOUTN YELLOW DRAINAGE. GRAVITY DRAIN FLUSHED ORDERED, 10MLS BLOODY DRAINAGE. ACCUCHECK Q6 HOURS WNL. NO LABS THIS MORNING. FAMILY MEMBER AT BEDSIDE MOST OF THE NIGHT. ABLE TO USE CALL LITE AND MAKE NEEDS KNOWN. NPO BUT HARD CANDY, GUM AND PAIN PILLS OK. ABD BINDER IN PLACE WITH GAUZE DRSG INTACT TO ABD INCISION AND DRAIN SITES. BED ALARM ON FOR SAFETY.
[2018-04-26 07:45] VITALS: BP 107/85
--- NOTE | 2018-04-26 11:05 | NUR ---
ABDOMINAL BINDER CHANGED THIS AM PER PATIENT REQUEST. DRESSING TO LOWER PORTION OF MIDLINE INCISION, GAUZE CHANGED. RADHA DRAIN PATENT AND GRAVITY DRAIN PATENT. UP IN THE CHAIR THIS AM. MCCOY PATENT AND DRAINING. CALL LIGHT WITHIN REACH. WILL CONTINUE WITH PLAN OF CARE.
--- NOTE | 2018-04-26 16:28 | NUR ---
SW continuing to follow to assist with safe dc planning. No placement/referral source responding as of yet. Possible plan for home or LTC facility with hospice care if facility and a hospice agency will accept pending insurance. Possible need for family conference with pt, family, and doctor to discuss recommendations and plan.
[2018-04-26 17:25] VITALS: BP 143/78
[2018-04-26 19:30] VITALS: BP 115/70
--- NOTE | 2018-04-27 05:17 | NUR ---
PT SLEPT ON AND OFF THIS SHIFT. ASSESSMENT DOCUMENTED. MEDS GIVEN PER E-APR. PICC PATENT, TPN INFUSING. PAIN MEDS GIVEN PER E-APR. DRAINS IN PLACE. MCCOY DRAINING DEPENDANTLY WILL CONTINUE WITH PLAN OF CARE.
[2018-04-27 07:50] VITALS: BP 120/68
[2018-04-27 16:00] VITALS: BP 155/72
--- NOTE | 2018-04-27 16:33 | NUR ---
Following for d/c planning needs. [place] back from [facility] infusion. TPN would be $232/day. Spoke with dietitian re: TPN formula. Notified pt's [id number]. Also asked environmental planner to fax referral to [facility]. Will remain available to assist as needed.
--- NOTE | 2018-04-27 17:13 | NUR ---
KATHI called and spoke with DJ from [facility] who is willing to accept pt at LTC at dc pending clarification on length of need of TPN. SW to discuss with a doctor about possible family conference and continue to follow to assist with safe dc planning.
--- NOTE | 2018-04-27 18:00 | NUR ---
PATIENT RESTING IN BED. PATIENT HAS HAD COMPLAINTS OF ABDOMINAL PAIN, TREATED ADEQUATLEY WITH MEDICATION. PATIENT DRAIN FLUSHED, MINIMAL OUTPUT. PATIENT UP IN CHAIR WITH STANDBY ASSIST. PATIENT WORKED WITH PHYSICAL THERAPY THIS AM. PATIENT IS NPO. PATIENT DENIES ANY NEEDS AT THIS TIME. CALL LIGHT WITHIN REACH. WILL CONTINUE TO MONITOR.
--- NOTE | 2018-04-27 18:13 | CON ---
[address] [address] CONSULTATION Name: KIANNA HIDALGO Room: [address] IN M.R.#: [id number] Admission: 04/02/18 Attend Phys: Oni Lang MD Discharge: Date of : 51 Report #: [id number] THIS REPORT FOR: //name// CC: [facility]ANE[facility] physician/PCP Oni Lang DATE OF SERVICE: 04/03/2018 HISTORY OF PRESENT ILLNESS: This is a pleasant 62-year-old female with no known past medical history. The patient has never presented to an ER or hospital or a doctor's visit for the last 40 years. The patient was taking care of her sick who recently and since then, the patient noticed that she has lost about 100 pounds weight in the last 1 year. The patient presented to the ER with progressive weakness, dyspnea on exertion and weight loss. The patient also reports abdominal pain located in the right lower quadrant. The pain is sharp, localized, nonradiating and there are no particular aggravating factors. The pain appears to be relieved with pain medication. The patient denies any nausea, vomiting, hematemesis or hematochezia. PAST MEDICAL HISTORY: As mentioned above, the patient has no known past medical history as she has never presented to a doctor. PAST SURGICAL HISTORY: None. FAMILY HISTORY: Positive for colon cancer in her mother. SOCIAL HISTORY: The patient denies smoking, alcohol or recreational drug use. REVIEW OF SYSTEMS: Negative except for what was mentioned in the HPI. PHYSICAL EXAMINATION: VITAL SIGNS: Temperature 37.1, pulse rate 74, respirations 16, blood pressure ____, pulse ox 94%. GENERAL: The patient is alert, awake, oriented x 3. HEENT: Pupils are equal, round, reactive to light and accommodation. She appears chronically weak, emaciated and cachectic. There is no scleral icterus. LUNGS: Clear to auscultation bilaterally. CARDIOVASCULAR: Rate and rhythm regular, S1, S2 present. ABDOMEN: Soft. There is tenderness to palpation in the right lower quadrant. Mass-like area is detected on deep palpation of the right lower quadrant with matting. No guarding or rigidity. EXTREMITIES: Warm, well perfused. There is no edema. SKIN: Warm and dry. LABORATORY DATA: Hemoglobin on presentation was 2.7, hematocrit 9.9, platelet count 444, WBC count 6.4. After several blood transfusions, [place] [address] CONSULTATION Name: KIANNA HIDALGO Room: [address]#: [id number] Admission: 04/02/18 Attend Phys: Oni Lang MD Discharge: Date of : 51 Report #: [id number] improved to 7. IMAGING: Abdomen and pelvis CT, this demonstrates a nonspecific wall thickening and luminal nodularity of the cecum with mild pericolonic soft tissue stranding. Findings are nonspecific and concerning for colonic mass with superimposed colitis. No discrete inflammatory mass or bowel obstruction noted. Nonspecific rounded nodules in the distal right iliac region measuring 1.7 x 2.9 and 2.1 x 2.5 cm, may represent chronic or metastatic adenopathy, cholelithiasis with partially obstructed gallbladder. No evidence of pericholecystic fluid or liver duct dilation. ASSESSMENT AND PLAN: A pleasant 62-year-old female, with no known past medical history, presents with progressive weakness, lethargy and weight loss. The patient was noted to have a hemoglobin of 2.[address] shows evidence of a colonic mass. We will proceed with colonoscopy to evaluate this mass further. 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 Further recommendations will depend on the results of the colonoscopy and biopsy. <ELECTRONICALLY SIGNED> By: Jose Fagan MD 04/27/18 1813 [id number] [id number] Fagan MD /nt
[2018-04-27 20:20] VITALS: BP 130/70
--- NOTE | 2018-04-28 00:51 | OP ---
[address] [address] OPERATIVE REPORT Name: KIANNA HIDALGO Room: [address] IN M.R.#: [id number] Admission: 04/02/18 Attend Phys: Oni Lang MD Discharge: Date of : 51 Report #: [id number] THIS REPORT FOR: //name// CC: [facility] physician/PCP Oni Lang MD DATE OF SERVICE: 04/06/2018 PREOPERATIVE DIAGNOSIS: Large right colon mass. POSTOPERATIVE DIAGNOSES: 1. Perforated right colon mass. 2. Intraperitoneal abscess. PROCEDURES: Diagnostic laparoscopy converted to laparotomy with right hemicolectomy with ileotransverse anastomosis and omental patch and partial omentectomy. SURGEON: Manny Dangelo DO. CONTENT CURATOR: Abhi Calvin DO. SECOND INSIDE SALES: Maliha Lee DO. THIRD INSIDE SALES: Kristyn Silva. ANESTHESIA: General endotracheal. ESTIMATED BLOOD LOSS: Less than 50 mL. COMPLICATIONS: There was transection of the right ureter, which appeared to be going through the area of tumor. This was repaired by Urology, Dr. De Luna and Dr. Doherty. Please see their operative report for details on that. DESCRIPTION OF PROCEDURE: After obtaining proper consents and discussing risks and complications with the patient, she was taken to the operating room, laid in the supine position, administered general anesthesia. She was then prepped and draped in the usual fashion. We began by making a supraumbilical skin incision with #11 scalpel blade. This was carried down through the skin and subcutaneous tissue using electrocautery for hemostasis. Once the fascia was encountered, it was incised along the midline, grasped and elevated with [facility] clamps and the peritoneum was then bluntly opened using a hemostat. We then placed two 0 Vicryl sutures in a [id number] fashion to secure the Conner trocar, which was then inserted and insufflation was begun. Once insufflation was complete, full visual inspection of the anterior abdominal [place] [address] OPERATIVE REPORT Name: IKANNA HIDALGO ALON Room: [address] IN M.R.#: [id number] Admission: 04/02/18 Attend Phys: Oni Lang MD Discharge: Date of : 51 Report #: [id number] immediately revealed an inflammatory mass attached to the abdominal wall, which was surrounded by omentum in the right midabdomen. There were no other gross abnormalities identified. The liver appeared to be smooth and normal with no evidence of metastasis. The remainder of the abdominal cavity at this point appeared quite normal. We then placed a 5-mm suprapubic trocar and once this was placed, I was able to palpate the area in the right midabdomen, which was covered with omentum. I was able to pull some of this omentum away and there appeared to be an eroding colon tumor, which was eroding into the omentum. It was firmly attached to the abdominal wall and I was unable to move it at all and there was quite a firm area even much deeper, so without wasting much time, we elected to convert to an open procedure. I stopped the insufflation. All the trocars were removed. We then extended the midline incision slightly above and below the umbilical incision. This was carried down through the skin and the subcutaneous tissue using electrocautery for hemostasis. Once the incision was large enough for me to place my hand within the peritoneal cavity, I was easily able to identify this mass, which was attached to the right abdomen. We were able to elevate the abdominal wall and using blunt and sharp dissection with electrocautery as well as finger dissection, I was able to partially separate this mass from the abdominal wall. It appeared to have been eroding through the abdominal wall. There was an abscess cavity and what appeared to be a perforation of the mid ascending colon into the abdominal wall, which was completely walled off. There was some purulent fluid as well as a foul odor of a perforated bowel at this point. I cultured the area. We then suctioned immediately. I then continued dissection of that area laterally away from the abdominal wall; however, at one point, it became quite firm and I elected to go more proximally and start taking down freeing up the terminal ileum, so I could try to bring this mass to the midline. Once I freed up the terminal ileum and was able to bring that portion over, the tumor was still firmly attached. It felt like posteriorly, so I then moved up to the midline and took down the gastrocolic omentum between the transverse colon and the stomach and then attempted to take down the hepatic flexure. This area was quite adherent with what appeared to be tumor. I did identify the duodenum and this mass was firmly attached to the duodenum. I bluntly and sharply dissected with Metzenbaum scissors to remove this mass from the duodenum, but there was what appeared to be some either inflammation or possibly some tumor remaining on top of the duodenum. This appeared to be on the second portion of the duodenum in the area. We finally were able to move the tumor more medially and then, I opened an avascular window. Just distal to the right branch of the middle colic artery and the transverse colon, we then used a TIMA-80 to fire across this. I then sequentially clamped and divided the mesentery using the LigaSure impact device until we were into the area of the terminal ileum. I then chose an area for resection there and a TIMA-80 was fired across this as well. We then continued taking down the mesentery using the LigaSure impact device until the specimen was completely removed. We then checked the duodenum and all other areas for any leak or bleeding. While exploring further, it appeared that there was a tubular structure, which was consistent with the ureter, [place] [address] OPERATIVE REPORT Name: KIANNA HIDALGO IGNACIO Room: [address] IN M.R.#: [id number] Admission: 04/02/18 Attend Phys: Oni Lang MD Discharge: Date of : 51 Report #: [id number] been going up into this area of inflammation and thickness from the mass and the mesentery and after further exploration, it appeared that the ureter had been transected. I identified both ends and it appeared that there was good overlap of both ends for potential repair, so I did call the urologist and Dr. Doherty and Dr. De Luna did join us shortly in the operating room and performed a repair of the injured ureter over a stent, please see their operative report for full details. Following this, I copiously irrigated the abdominal cavity. We placed a 19-Austrian Evaristo-Whitney drain. I also placed an omental patch over both the duodenum and the anastomosis with 2-0 Vicryl suture. The drain was sutured in place using 2-0 nylon suture. We then closed the abdominal cavity using a running #1 looped PDS suture. Subcutaneous tissues were closed using 3-0 Vicryl suture. The skin was closed using charlette. Sterile dressings were placed. The patient was then awakened in the operating room and transported to recovery room in stable condition. Sponge, needle and instrument counts were all correct at the end of the procedure. <ELECTRONICALLY SIGNED> By: Manny Dangelo DO 04/28/18 0051 [id number] 1925Abarbara Dangelo DO /nt
[2018-04-28 03:16] VITALS: BP 123/75
[2018-04-28 04:10] LABS: HEMATOCRIT 23.9 % (37.0-47.0); HEMOGLOBIN 7.8 gm/dL (12.0-15.0); MCH 26.7 pg (26.0-34.0); MCHC 32.5 g/dL (28.0-37.0); MCV 82.1 fL (80.0-100.0); MPV 7.9 fl. (7.2-11.1); RBC 2.91 mil/uL (4.20-5.00); RDW-CV 24.9 % (10.5-14.5); WBC 5.2 thou/uL (4.0-11.0)
[2018-04-28 04:23] LABS: ALBUMIN 1.6 g/dL (3.4-5.0); CALCIUM 8.4 mg/dL (8.5-10.1); CREATININE 0.6 mg/dL (0.6-1.3); MAGNESIUM 1.8 mg/dL (1.8-2.4); TOTAL BILIRUBIN 0.2 mg/dL (<0.1-1.0); TOTAL PROTEIN 6.7 g/dL (6.4-8.2)
--- NOTE | 2018-04-28 05:28 | NUR ---
PT SLEPT ON AND OFF THIS SHIFT. ASSESSMENT DOCUMENTED. MEDS GIVEN PER E-MAR. PICC PATENT, TPN INFUSING. PAIN MEDS GIVEN PER E-MAR WITH PARTIAL RELIEF. DRAINS IN PLACE. MCCOY DRAINING DEPENDANTLY. ABD BINDER IN PLACE. WILL CONTINUE WITH PLAN OF CARE.
[2018-04-28 07:50] VITALS: BP 114/68
--- NOTE | 2018-04-28 17:05 | NUR ---
SW received call from admissions at [facility] and facility is considering accepting pt at dc to LTC and they accept TPN. They would require IV push change to po. The facility has GIP with [facility] and they would be willing to speak with pt and pt family about possibilities. Admissions at [facility] [phone].
--- NOTE | 2018-04-28 19:01 | NUR ---
PATIENT UP TO CHAIR. PATIENT ON RA. O2 SAT @ 96% IN THE AM. PATIENT A&O X4. PATIENT DILAUDID IV AND PO HYDROCODONE GIVEN FOR PAIN. PATIENT VISITED BY FAMILY. ONCOLOGY CONSULTED. PATIENT UNHAPPY WITH HEALTH CONDITION. URINARY CATHETER PATENT AND EMPTIED AT END OF SHIFT. DRAINAGE EMPTIED.
[2018-04-29 04:35] VITALS: BP 137/75
--- NOTE | 2018-04-29 04:40 | NUR ---
PATIENT AWAKE MOST OF THE NIGHT. PT WITH ZAFAR WRAP AROUND ABDOMEN. PT SAYS DR SAID IT WAS IN PLACE OF ABD BINDER. PT REWRAPPED IT NUMEROUS TIMES TANGLING IT WITH IV TUBING AND DRAIN TUBES. WRAP AND TUBES UNTANGLED EACH TIME. PT ASSISTED WITH TURNS AND IS ALSO ABLE TO REPOSITION HERSELF AT TIME. PT DOING ACTIVE LEG EXERCISES. PT IS ON ROOM AIR. TPN AND ANTIBIOTICS INFUSING PER DR ORDER IN TRIPLE LUMAN PICC IN RT UPPER ARM. ABLE TO DRAW/FLUSH ALL THREE LINES WITH MINIMAL RESISTANCE. PT REQUESTED PAIN MEDIATION X2 AND RECEIVED HYDROCODONE 2 TABS X1 AND DILUADID 1MG IV X1. PT DID NOT ASK FOR ATIVAN DURING THIS SHIFT. PT MCCOY TO DEPENDENT DRAIN WITH YELLOW URINE. PT DENIES NEEDS AT THIS TIME. FREQUENLY USED ITEMS AND CALL LIGHT WITHIN REACH. SIDERAILS UPX4 PER PT REQUEST. WILL CONTINUE TO MONITOR.
[2018-04-29 16:00] VITALS: BP 154/105
--- NOTE | 2018-04-29 17:17 | NUR ---
Following for d/c planning needs. Long discussion with pt and son Chintan and Dr Dangelo. Plan is for pt to have CT again on Wednesday to see if hole is closing. Choices are going home with hospice and pleasure feeds, home with TPN, PEG tube placement or going to alf. Pt wants to return home. Family to make decision after results of CT on Wednesday re: next step. [place] and [facility] are able to accept pt. Pt could return home with TPN with out of pocket costs perhaps covered by family. Pt wants to return home and is agreeable with hospice if recommended by physicians after CT. Will discuss again with family after results of CT. Also looking into having Medicaid application expedited.
[2018-04-29 20:00] VITALS: BP 160/81
--- NOTE | 2018-04-30 04:41 | NUR ---
ASSUMED CARE OF PT AFTER REPORT AT 1930. PT A&OX4. VSS. PHYSICAL ASSESSMENT COMPLETED AND CHARTED. PT ON RA WITH 98% O2 SAT. PTS GRAVITY DRAIN PATENT WITH MILKY OUTPUT. PT WITH MCCOY TO DEPENDENT DRAIN. PT RIGHT UPPER ARM PICC LINE PATENT & INTACT WITH TPN ONGOING. MAINTAINED ON NPO EXCEPT MEDS. PT HAD ONE EPISODE OF BM TONIGHT. PT DENIES PAIN OR SOA AT THIS TIME. PT RESTED WELL ON BED. CALL LIGHT WITHIN REACH.
[2018-04-30 08:23] VITALS: BP 128/72
--- NOTE | 2018-04-30 16:10 | NUR ---
ASSUMED CARE AT 0730. ALERT ORIENTED PLEASANT COOPERATIVE. HX OF OBSTRUCTING CECAL MASS. TRANSFERS WITH SBA WALKER TO BS. HAS MCCOY CATHETER TO DD BAG YELLOW URINE. DRESSINGS C/D/I ABDOMEN. ALSO HAS A DRAIN RT. SIDE. PICC LINE MARICHUY WITH TPN INFUSING AT 75CC/HR. ALSO IV ANTIBIOTICS. MEDICATED X 2 FOR RT. LOWER ABDOMEN PAIN WITH VICODIN WITH SOME RELIEF. WEARS BINDER NPO EXCEPT MEDS.
[2018-04-30 16:24] VITALS: BP 129/75
[2018-04-30 20:00] VITALS: BP 144/77
--- NOTE | 2018-05-01 06:55 | NUR ---
ASSUMED PT CARE @1930. PT GIVEN PRN PAIN MED FOR MIDLINE INCISION PAIN. HEALING UNDER ABD BINDER W SLIGHT REDNESS AT BOTTOM OF INCISION. PRN NIGHT MED EFFECTIVE. CALL LIGHT IN REACH. HOURLY ROUNDING FOR SAFETY.
[2018-05-01 08:31] VITALS: BP 134/64
--- NOTE | 2018-05-01 09:30 | NUR ---
REC'D REPORT FROM NOC RN, ASSUMED CARE OF PATIENT APPROX 0730. ORIENTED X4, ABLE TO COMMUNICATE NEEDS TO STAFF. PAIN CONTROL IS A CONCERN TO PATIENT, WHO STATES "I TRY TO ONLY TAKE PAIN MEDICINE A FEW TIMES A DAY." EDUCATION GIVEN R/T PAIN MANAGEMENT. PT VOICES UNDERSTANDING, NEEDS REINFORCEMENT. ASSESSMENT COMPLETE, VS OBTAINED. VS WNL, O2 SATS 98% RA. HOURLY ROUNDING FOR SAFETY AND PT NEEDS. CALL LIGHT WITHIN REACH.
--- NOTE | 2018-05-01 16:15 | NUR ---
ENTERED ROOM FOR MED ADMINISTRATION. PT STATES "I CALLED BECAUSE I WANT TO WALK. MAYBE THAT WILL WORK OUT THIS LOWER BACK PAIN." WHILE IN THE ROOM, PATIENT BECAME TEARFUL AND STATED "I LOST MY . I HAVEN'T BEEN ABLE TO GRIEVE HIM. I MISS MY HOME. I'M REALLY DEPRESSED." THERAPEUTIC COMMUNICATION TECHNIQUE PROVIDED: PRESENCE. TEARFUL WHILE COMMUNICATING FEELINGS. ADDITIONAL FAMILY MEMBERS ENTERED ROOM AND BEGAN INTERACTING WITH PATIENT. PATIENT WALKED IN RIGGINS WITH TREASURY DIRECTOR. REASSESSMENT FOR PAIN FINDS PATIENT WITH LESS PAIN.
[2018-05-01 16:19] VITALS: BP 150/86
[2018-05-02 05:20] LABS: HEMATOCRIT 22.5 % (37.0-47.0); HEMOGLOBIN 7.2 gm/dL (12.0-15.0); MCHC 32.3 g/dL (28.0-37.0); MCV 83.6 fL (80.0-100.0); MPV 8.1 fl. (7.2-11.1); RBC 2.69 mil/uL (4.20-5.00); RDW-CV 23.9 % (10.5-14.5); WBC 5.6 thou/uL (4.0-11.0)
--- NOTE | 2018-05-02 05:34 | NUR ---
ASSUMED PT CARE @ 1930. PT VERY ANXIOUS. GAVE NIGHT MEDS SOON ABLE ACCESS THE PIXIS. HS MEDS MINIMALLY EFFECTIVE. PT WAS AWAKE BY MIDNIGHT. ENCOURAGED PT TO TAKE HER ATIVAN SHE WAS HAVING EXTREME ANXIETY AND REPORTED SHE "HASNT SLEPT WELL IN YEARS R/T CHRONIC ANXIETY." ATIVAN EFFECTIVE. PT ABLE TO SLEEP MORE TONIGHT AND WAS MORE RELAXED TONIGHT THAN OBSERVED BY THIS RN LAST DINING CAR WAITER/WAITRESS. PRN PAIN MEDICATION GIVEN X 2. CALL LIGHT IN REACH. HOURLY ROUNDING FOR SAFETY.
[2018-05-02 05:45] LABS: ALBUMIN 1.9 g/dL (3.4-5.0); CALCIUM 8.2 mg/dL (8.5-10.1); CREATININE 0.5 mg/dL (0.6-1.3); POTASSIUM 4.1 mmol/L (3.5-5.1); TOTAL BILIRUBIN 0.2 mg/dL (<0.1-1.0); TOTAL PROTEIN 6.9 g/dL (6.4-8.2)
[2018-05-02 08:00] VITALS: BP 128/79
--- NOTE | 2018-05-02 11:31 | NUR ---
FAMILY REPORTS THEY ARE UNHAPPY WITH PLAN OF CARE FOR PT. "WE DON'T WANT TO JUST GIVE UP". DR VERNON AND ISRAEL SAW PT THIS AM AND DISCUSSED POSSIBILITY OF HOSPICE. FAMILY CONTEMPLATING GETTING A SECOND OPINION AT A DIFFERENT HOSPITAL. ENCOURAGED FAMILY TO DISCUSS PLAN AMONG THEMSELVES AND LET STAFF KNOW SO DR WOOD CAN BE MADE AWARE
[2018-05-02 16:19] VITALS: BP 132/73
--- NOTE | 2018-05-02 16:41 | NUR ---
PT RESTING IN BED THROUGHOUT SHIFT. PT REFUSES TURNS WHILE IN BED BUT REPOSITIONS SELF WELL. PT UP TO CHAIR FREQUENTLY WITH ASSIST FROM STAFF AND FAMILY. TPN INFUSING. PT TAKING PILLS WITH SMALL AMT OF WATER. ABDOMINAL DRAIN DRAINING PURULENT GREEN FLUID. PAIN WELL CONTROLLED WITH PO MEDS. MCCOY CATH DRAINING YELLOW URINE. FAMILY UPDATED ON PLAN OF CARE. FAMILY NOT AGREEABLE TO HOSPICE.
[2018-05-02 20:00] VITALS: BP 128/48
[2018-05-03 07:45] VITALS: BP 112/61
[2018-05-03 11:30] VITALS: BP 120/62
[2018-05-03 14:00] VITALS: BP 131/66
--- NOTE | 2018-05-03 15:40 | NUR ---
PT HAS BEEN PLEASANT AND COOPERATIVE, WORKED WITH OT AND PT TODAY. TPN INFUSING AT 75 CC/HR VIA RIGHT UPPER ARM PICC. NO C/O PAIN OR NAUSEA THIS SHIFT. MIDLINE ABDOMINAL INCISION WELL APPROXIMATED, ABDOMINAL BINDER IN PLACE. THERE IS A SCANT AMOUNT OF THICK LEIVA DRAINAGE IN THE COLLECTION BAG. FALL PRECAUTIONS AND HOURLY ROUNDING CONTINUE.
--- NOTE | 2018-05-03 16:42 | NUR ---
SW discussed with Dr Easton that there is a possibility of placement for pt at [facility] who would accept with TPN just not IV push medications. Dr Easton mentioned pt/pt family continue to discuss more surgeries vs hospice and Dr Easton noted pt may not be stable enough condition to transition out of the hospital at this time. SW to continue to follow to assist with safe dc planning.
[2018-05-03 19:45] VITALS: BP 131/68
[2018-05-04 03:50] LABS: HEMATOCRIT 21.3 % (37.0-47.0); MCHC 32.1 g/dL (28.0-37.0); MCV 84.3 fL (80.0-100.0); MPV 7.6 fl. (7.2-11.1); RBC 2.52 mil/uL (4.20-5.00); RDW-CV 23.9 % (10.5-14.5); WBC 5.5 thou/uL (4.0-11.0)
[2018-05-04 04:02] LABS: HEMOGLOBIN 6.8 gm/dL (12.0-15.0)
[2018-05-04 04:10] LABS: CALCIUM 8.5 mg/dL (8.5-10.1); CREATININE 0.6 mg/dL (0.6-1.3); MAGNESIUM 1.8 mg/dL (1.8-2.4); PHOSPHORUS* 4.4 mg/dL (2.5-4.9); POTASSIUM 4.2 mmol/L (3.5-5.1)
--- NOTE | 2018-05-04 05:27 | NUR ---
PT SLEPT ON AND OFF THIS SHIFT. ASSESSMENT DOCUMENTED. MEDS GIVEN PER E-APR. PAIN AND ANXIETY MEDS GIVEN PER E-APR. PICC PATENT, TPN INFUSING. PT HAD CRITICAL HEMOGLOBIN THIS SHIFT, NOTIFIED, ORDERS RECIEVED, AWAITING CALL FOR BLOOD TO BE READY. WILL CONTINUE WITH PLAN OF CARE.
[2018-05-04 07:30] VITALS: BP 112/56
[2018-05-04 07:38] VITALS: BP 116/80; BP 119/60; BP 126/63; BP 127/65; BP 128/65
[2018-05-04 08:00] VITALS: BP 134/62
[2018-05-04 14:35] VITALS: BP 142/61
[2018-05-04 16:00] VITALS: BP 136/78
--- NOTE | 2018-05-04 17:01 | NUR ---
KATHI to follow up with Kourtney at [facility] who is waiting and keeping pt information pending if needed and with JAYDEN at [facility] [phone] or [phone] to update on pt status. KATHI discussed pt dc plan with Dr Easton who stated possibly dc Wednesday. SW to continue to follow.
[2018-05-04 20:00] VITALS: BP 125/69
[2018-05-05 04:33] LABS: HEMATOCRIT 25.2 % (37.0-47.0); HEMOGLOBIN 8.4 gm/dL (12.0-15.0); MCH 28.1 pg (26.0-34.0); MCHC 33.3 g/dL (28.0-37.0); MCV 84.3 fL (80.0-100.0); MPV 8.1 fl. (7.2-11.1); RBC 2.99 mil/uL (4.20-5.00); RDW-CV 21.5 % (10.5-14.5); WBC 6.9 thou/uL (4.0-11.0)
[2018-05-05 04:55] LABS: CALCIUM 8.5 mg/dL (8.5-10.1); CREATININE 0.6 mg/dL (0.6-1.3); POTASSIUM 4.3 mmol/L (3.5-5.1)
--- NOTE | 2018-05-05 05:58 | NUR ---
PT SLEPT MOST OF SHIFT. ASSESSMENT DOCUMENTED. MEDS GIVEN PER E-APR. PICC PATENT, TPN INFUSING. ANXIETY MEDS GIVEN PER E-MAR. PT REFUSING PAIN MEDICATIONS SO FAR THIS SHIFT. PT REPORTED HAVING A LITTLE BIT TO EAT AND DRINK AND HAD NO REPORTS OF NAUSEA. WILL CONTINUE WITH PLAN OF CARE.
[2018-05-05 08:35] VITALS: BP 135/72
[2018-05-05 13:46] LABS: % SATURATION 14 % (20-39); IRON 28 ug/dL (50-175)
[2018-05-05 16:00] VITALS: BP 134/70
--- NOTE | 2018-05-05 16:35 | NUR ---
KATHI spoke with Kourtney from [facility] and with JAYDEN with [facility] to provide updates regarding pt dc planning and care plan. KATHI faxed updated records to [facility] admissions as JAYDEN implied that the team at [facility] would need to reevaluate whether or not they will accept pt. Kourtney plans to keep pt referral for TPN on hold...still not certain of payment for TPN, although JAYDEN had once informed KATHI they would accept pt on TPN, now the payment for TPN may be a challenge. KATHI to continue to follow to assist with safe dc planning.
--- NOTE | 2018-05-05 16:49 | NUR ---
PATIENT IS ALERT AND ORTENTED TODAY, PLEASANT BUT FLAT AFFECT. SOME PAIN THAT IS CONTROLLED WITH ORAL PAIN MEDICATIONS. FAMILY HAS BEEN AT BEDSIDE ALL DAY TODAY. CALL LIGHT IS IN REACH, WILL CONTINE TO MONITOR,
[2018-05-05 19:50] VITALS: BP 122/70
--- NOTE | 2018-05-06 06:03 | NUR ---
PT SLEPT PART OF SHIFT. ASSESSMENT DOCUMENTED. MEDS GIVEN PER E-APR. PICC PATENT, TPN INFUSING. PAIN MEDS GIVEN PER E-APR WITH RELIEF. PT REFUSED SLEEPING MEDICATION AND ANXIETY MEDICATION THIS SHIFT STATING IT MADE HER HEAD FEEL TOO HEAVY YESTERDAY. DRAIN AND MCCOY IN PLACE. WILL CONTINUE WITH PLAN OF CARE.
[2018-05-06 08:15] VITALS: BP 113/62
[2018-05-06 15:30] VITALS: BP 134/66
--- NOTE | 2018-05-06 16:30 | NUR ---
SW met with pt, one of pt dtrs, and pt son in law. Pt and pt family concerned with dc plan and if Medicaid status has changed; they are hoping for Medicaid acceptance soon. Pt and pt family state that they will take pt home but are concerned with being able to pay for TPN. SW mentioned [facility] said that they may accept pt with TPN at initial referral but that now they are reconsidering whether or not they would be able to provide TPN without a payor source helping to cover the cost. Pt adamant about being able to return home and pt family will be with pt at all times; pt would want [facility] and/or HH nurse if at all possible through ayanna from the organizations. SW to call [employer] to follow up on status of Medicaid, SW to contact [facility] and [facility] Care again, also work with blueprint machine operator to determine specific needs and best cost if there is a lesser expensive option that would be appropriate.
--- NOTE | 2018-05-06 17:42 | NUR ---
PATIENT RESTING IN BED. PATIENT HAS HAD COMPLAINTS OF GENERAL PAIN, TREATED ADEQUATELY WITH MEDICATION X 2 TODAY. PATIENT IS UP STANDBY ASSIST, WALKED HALLS X 1 TODAY. PATIENT DOES NOT LIKE CLEAR ENSURES, ENCOURAGED TO DRINK FOR NUTRITION NEEDS, OTHERWISE TOLERATING CLEAR LIQUIDS. PATIENT DENIES BOWEL MOVEMENT SINCE WEDNESDAY. PATIENT DENIES ANY NEEDS AT THIS TIME. CALL LIGHT WITHIN REACH. WILL CONTINUE TO MONITOR.
[2018-05-06 21:00] VITALS: BP 132/71
--- NOTE | 2018-05-07 00:10 | NUR ---
INITAL ASSESMENT COMPLATED AT 2100. PT GIVEN HS MEDS, VITAL SIGNS WITHIN NORMAL LIMITS. PT GIVEN ONE NORCO FOR PAIN PER PT REQUEST. PT REPOSITIONED Q 2 HRS. CALL LIGHT IN REACH, PT USING APPROPRIATELY.
--- NOTE | 2018-05-07 01:24 | NUR ---
PT REFUSES TO REPOSITION. PT EDUCATED ON NEED TO PREVENT SKIN BREAKDOWN. PT VERBALIZE UNDERSTANDING BUT REFUSES TO TURN.
[2018-05-07 06:38] LABS: HEMATOCRIT 25.8 % (37.0-47.0); HEMOGLOBIN 8.4 gm/dL (12.0-15.0); MCHC 32.5 g/dL (28.0-37.0); MCV 86.1 fL (80.0-100.0); MPV 8.2 fl. (7.2-11.1); RBC 2.99 mil/uL (4.20-5.00); RDW-CV 20.6 % (10.5-14.5); WBC 5.5 thou/uL (4.0-11.0)
[2018-05-07 06:52] LABS: CALCIUM 8.7 mg/dL (8.5-10.1); CREATININE 0.6 mg/dL (0.6-1.3); POTASSIUM 4.3 mmol/L (3.5-5.1)
--- NOTE | 2018-05-07 06:54 | NUR ---
VITAL SIGNS WITHIN NORMAL LIMITS DURING SHIFT. PT RECIEVED ONE NORCO AT HS FOR PAIN, NONE SINCE. PT HAD NO OUTPUT FROM DRAIN. TPN INFUSING VIA PICC LINE. ACCU CHECKS DONE Q 6 HRS. BLOOD SUGARS WITHIN NORMAL LIMITS. NO ACUTE CHANGES, WILL CONTINUE PLAN OF CARE.
[2018-05-07 08:00] VITALS: BP 126/58
[2018-05-07 15:43] VITALS: BP 135/71
--- NOTE | 2018-05-07 16:11 | NUR ---
pt has been up to chair at bedside during lunch. pt had c/o back and rt abdomen pain at drain site,prn for pain given with good effect.drain irrigated with 10ml ns with clear gould drainage noted. charlette to abdomen intact and pt has binder on. pt did eat few bites of pudding and cream soup and denied nausea. fernandez to dd with clear yellow urine present. to discuss with on wednesday about fernandez and stint removal.pt on room air and is alert and orientated. triple lumin picc line to rt upper arm flushing well and tpn infusing well.no bm today but pt is passing flatus and audiable bowel sounds heard.pt has visited with family today, hourly rounding continues.
[2018-05-07 20:10] VITALS: BP 118/68
--- NOTE | 2018-05-08 01:15 | NUR ---
INITAL ASSESMENT COMPLATED AT 191. PT'S DRAIN FLUSHED AT THAT TIME. PT REPORTED FLUSH CAUSED PAIN. PT GIVEN PRN NORCO PER REQUEST. PT GIVEN 2 NORCO AT MIDNIGHT FOR PWIN IN SAME LOCATION. CALL LIGHT IN REACH. PT DEMONSTRATES PROPER USE.
--- NOTE | 2018-05-08 06:48 | NUR ---
PT SLOWLY PROGRESSING TOWARD GOALS. VITAL SIGNS WITHIN NORMAL LIMITS. PT RECIEVED PRN NORCO TWICE DURING SIFT FOR ABDOMINAL PAIN. REPORTED DRAIN OUTPUT AND PAIN ASSOCIATED WITH DRIN FLUSH TO MEDICAL COST CONSULTANT. NO ACUTE CHANGES DURING SHIFT, CONTINUE PLAN OF CARE.
[2018-05-08 09:30] VITALS: BP 110/62
[2018-05-08 15:00] VITALS: BP 115/66
[2018-05-08 20:30] VITALS: BP 109/68
--- NOTE | 2018-05-09 06:15 | NUR ---
PT A&O X4. SAO2 98% RA. PT RECEIVED NORCO X1 DURING SHIFT. LIDOCAINE PATCH WAS TAKEN OFF. NO PATCH PLACED AT THIS TIME. TPN WAS CHANGED WITH NEW TUBING. RADHA DRAIN WAS IRRIGATED WITH 10ML NS. MCCOY CATHETER PATENT AND SECURED. ABX INFUSED ORDERED. PT DID NOT HAVE BM DURING SHIFT. CALLL LIGHT WITHIN REACH, LIGHTS TURNED DOWN PER PATIENT. WILL CONTINUE PLAN OF CARE.
[2018-05-09 07:04] LABS: ABSOLUTE EOSINOPHILS 0.3 thou/uL (0.0-0.7); ABSOLUTE LYMPHOCYTES 1.1 thou/uL (0.8-5.3); ABSOLUTE MONOCYTES 0.5 thou/uL (0.0-1.2); ABSOLUTE NEUTROPHILS 3.3 thou/uL (1.6-8.1); BASOPHILS 0.5 %; EOSINOPHILS 6.3 %; HEMATOCRIT 25.6 % (37.0-47.0); HEMOGLOBIN 8.3 gm/dL (12.0-15.0); LYMPHOCYTES 20.5 %; MCH 28.3 pg (26.0-34.0); MCHC 32.4 g/dL (28.0-37.0); MCV 87.4 fL (80.0-100.0); MONOCYTES 9.7 %; MPV 8.4 fl. (7.2-11.1); NUCLEATED RBCS 0 /100WBC; PLATELET COUNT* 313 thou/uL (150-400); RBC 2.92 mil/uL (4.20-5.00); RDW-CV 20.6 % (10.5-14.5); WBC 5.3 thou/uL (4.0-11.0)
[2018-05-09 07:26] LABS: CALCIUM 8.5 mg/dL (8.5-10.1); CREATININE 0.6 mg/dL (0.6-1.3); MAGNESIUM 1.4 mg/dL (1.8-2.4); PHOSPHORUS* 4.7 mg/dL (2.5-4.9); POTASSIUM 4.6 mmol/L (3.5-5.1)
[2018-05-09 08:19] LABS: ANISOCYTOSIS 2+; PLATELET ESTIMATE ADEQUATE; POLYCHROMASIA 1+
[2018-05-09 11:00] VITALS: BP 106/61
--- NOTE | 2018-05-09 15:36 | NUR ---
KATHI met with pt and pt dtr to follow up on dc plans. KATHI also spoke with Kourtney from [facility], admissions from both [facility] and [facility], Policy Advisor Marcia, and Dr Lux. KATHI left a message for [employer] on July's voicemail to follow up about Medicaid status. KATHI expressed to pt and pt dtr the options for LTC, TPN, and possibly pt trialing off of TPN and intake shakes and other liquids at least during the day, maybe TPN during the night; according to doctor and nutrition recommendations and orders. Pt and pt dtr continue to refuse LTC placement now stating that pt would rather go home. Pt asked if she would have a HH nurse through Medicaid and SW explained Medicaid does cover HH nurse at dc from hospital if in fact, the Medicaid would be active soon. If pt does choose to go home and have the least expensive option of TPN at night for a while (if still needed at dc to be determined), the cost would be $165 per day. KATHI to continue to follow to assist with safe dc planning.
[2018-05-09 16:50] VITALS: BP 123/68
--- NOTE | 2018-05-09 17:10 | NUR ---
PATIENT IS ALERT AND ORIENTED TODAY PLEASANT BUT FLAT AFFECT. SOME PAIN THAT IS SOMEWHAT CONTROLLED WITH ORAL PAIN MEDICATIONS. DRAIN IS DRAINING WELL FLUSHES WELL. APPETITE SEEMS TO BE IMPROVING WITH FULL LIQUIDS DIET. TPN IS STILL RUNNING IN RIGHT UPPER ARM PICC. FAMILY AT BEDSIDE, CALL LIGHT IS IN REACH, WILL CONTINUE TO MONITOR.
[2018-05-09 21:30] VITALS: BP 134/81
--- NOTE | 2018-05-10 06:59 | CON ---
[address] [address] CONSULTATION Name: KIANNA HIDALGO Room: [address] IN M.R.#: [id number] Admission: 04/02/18 Attend Phys: Oni Lang MD Discharge: Date of : 51 Report #: [id number] THIS REPORT FOR: //name// CC: [facility] physician/PCP Oni Lang DATE OF SERVICE: 04/28/2018 REASON FOR CONSULTATION: Colon cancer. REQUESTING PHYSICIAN: Dr. Lux HISTORY OF PRESENT ILLNESS: The patient is a pleasant 62-year-old woman who was diagnosed recently with locally advanced colon cancer. She was seen originally by Dr. Hernandez, my partner when she presented to the hospital with weight loss and anemia. A colonoscopy showed cecal mass. Dr. Hernandez recommended to proceed with surgery and recommended to follow up with PET scan after surgery. She was recommended to discuss adjuvant chemotherapy after surgery. ____ had complications with her surgery. ____ showed right colon poorly differentiated ____ adenocarcinoma with ____ surgical margins around the open defect adhering to ____ and then the duodenum. The 07/26 lymph nodes positive for ____ carcinoma. She had postsurgical infection and bacteremia with enteric joselito, fistula formation. She has been on multiple antibiotics ____. PAST MEDICAL HISTORY: Unremarkable although she states that she has never seen a doctor. She was taking care of her who is ALS. FAMILY HISTORY: Positive for colon cancer in mother. PHYSICAL EXAMINATION: GENERAL: Reveals a chronically ill appearing woman in mild acute distress because of anxiety and nervousness, but otherwise she is doing well. VITAL SIGNS: Blood pressure 114/68, heart rate is 69, temperature 97.6, respirations 18. HEENT: Does not reveal thrush. HEART: Normal S1 and S2. LUNGS: Clear. ____ edema. ABDOMEN: ____. MENTAL STATUS: Alert and oriented x 3. LABORATORY DATA: White count 5.2, hemoglobin 7.8, platelets 346. ____. RADIOLOGICAL DATA: CT of abdomen done that showed evidence of malignancy in the liver. ASSESSMENT AND PLAN: [place] [address] CONSULTATION Name: KIANNA HIDALGO Room: [address] IN [facility]#: [id number] Admission: 04/02/18 Attend Phys: Oni Lang MD Discharge: Date of : 51 Report #: [id number] 1. Colon cancer, locally ____. There are no obvious signs of metastatic disease. ____ I strongly recommended to consider chemotherapy in an adjuvant fashion after she recovers from the current condition. I discussed this case with Dr. Graf. Dr. Graf states that the patient is slowly recovering from complication. Dr. Graf says she should be able to receive chemotherapy in about 2 weeks. I discussed several different options. She is to let me know if she even ____ for hospice or palliative care at this point. She understood my discussions very well. She was not going to consider any hospice care or palliative care. She understands that she has ____ better than what the patient has required in hospice. She was to consider chemotherapy, although she would be interested in oral chemotherapy. ____ good option for adjuvant systemic therapy if she was considered. I will discuss this with Dr. Hernandez. I strongly ____. <ELECTRONICALLY SIGNED> By: Emmanuel Travis MD 05/10/18 [id number] Travis MD /nt
--- NOTE | 2018-05-10 07:32 | NUR ---
PT A&O X4. SAO2 95%. PT RECEIVED NORCO 1 TAB @ 2128 AND 2 TABS @ 060O THIS AM. RELIEFS NOTED ON REASSEMENTS. DARIUS WAS DC'D THIS AM, 1700 YELLOW URINE NOTED ON MCCOY. PT TOLERATED WELL. PT RECEIVED SCHEDULED PO ABX LAST NIGHT. NEW TPN BAG STARTED SCHEDULED. CALORIC INTAKE DURING SHIFT CHARTED ON THE SHEET AT PT'S DOOR. CALL LIGHT WITHIN REACH. PT WAS APPROPRIATE DURING SHIFT.
[2018-05-10 08:00] VITALS: BP 110/62
--- NOTE | 2018-05-10 16:25 | NUR ---
SW continuing to follow to assist with finalization of safe dc planning. Awaiting nutrition and medical decision on pt ability to thrive on liquid/soft diet plus or minus TPN overnight or otherwise. If needed, pt would have to pay $165 per day even if only TPN at night according to [facility]. Pt still has option of receiving care at [facility] or [facility], pt and pt family still adamant about pt to dc home with family care. Possible ayanna case for a HH or hospice/palliative agency to follow with a nurse...to be determined.
--- NOTE | 2018-05-10 16:28 | NUR ---
ASSUMED CARE AT 0730. ALERT ORIENTED PLEASANT COOPERATIVE. HX OF OBSTRUCTIVE CECAL MASS. PT. HAS VOIDED X 3 IN BSC TOM URINE TOTAL 600CCS SINCE MCCOY DCD THIS A.M. EATING FULL LIQUIDS AND PUDDING TODAY ON CALORIE COUNT. TPN INFUSING PER PICC MARICHUY. AT 75CC/HR. DRAIN TUBE RT. SIDE. DR. ANGUIANO ROUNDED. MEDICATED X 1 FOR RT. SIDE PAIN WITH NORCO WITH SOME RELIEF STATED. DAUGHTER HERE THIS MORNING. USES CALL LIGHT APPROPRIATELY.
[2018-05-10 16:53] VITALS: BP 113/58
[2018-05-11 00:22] VITALS: BP 124/58
--- NOTE | 2018-05-11 06:35 | NUR ---
PT STATES SHE SLEPT BETTER LAST NIGHT, RECEIVED PAIN MED AND SLEEPING PILL AT HS. DRAIN RLQ ABDOMEN WITH 10ML LEIVA DRAINAGE NET. MARICHUY PICC TPN INFUSING PER PUMP. ACCUCHECK WNL. NO LABS THIS MORNING. UP TO BSC TO VOID OVERNIGHT-1200 URINE OUTPUT THIS SHIFT. TOLERATING LIQUIDS AND SMOOTHIE FAMILY BROUGHT FROM HOME. ABLE TO USE CALL LITE AND MAKE NEEDS KNOWN. HOPEFUL FOR DISCHARGE HOME SOON. DNR.
[2018-05-11 07:55] VITALS: BP 140/76
[2018-05-11 16:19] VITALS: BP 104/52
--- NOTE | 2018-05-11 17:09 | NUR ---
SW met with pt and pt dtr to discuss dc planning for tomorrow. Pt and pt dtr choice would be for pt to dc home with dtr and family support tomorrow. SW discussed cheapest TPN and only at night is $165 per day and asked if she would be able to afford this at home. Pt said she would talk with her son about how much she could afford...pt said her house payment is $800 a month and her total income was not even $2000 a month. SW explained that SW could provide more updates to LTC facilities that were willing to accept pt, but again, pt and pt dtr said that pt would not go to LTC facility. Pt and pt dtr are hopeful pt would be able to sustain her nutrition needs by shakes and soft foods, supplements, etc. and pt wanted a list of everything she could and should eat. KATHI spoke with ANAND Kennedy who planned to provide the recommendations and then that pt requested information to pt as well. KATHI spoke with [facility] who said that they would be willing to accept pt as ayanna but that they wanted to order to state Hospice eval and treat as they felt pt was more appropriate for hospice services rather than palliative to which SW explained that most would likely agree however the pt family was not receptive to hospice at this time. Still, the company would want hospice eval order to be able to provide supportive care at home. KATHI mentioned [facility] in [place] that pt could also seek follow up care possibly; pt and pt dtr did not respond one way or the other about that option but SW will provide information for a resource. SW to continue to follow to finalize safe dc plan for pt to dc home with family care and [facility] care following if pt/family will accept services.
--- NOTE | 2018-05-11 18:43 | NUR ---
PATIENT RESTING IN BED. PATIENT IS UP STANDBY ASSIST. PATIENT IS TOLERATING SOFT FOODS, TRIED COTTAGE CHEESE FOR DINNER. PATIENT HAS COMPLAINTS OF RIGHT SIDE PAIN, TREATED PARTIALLY WITH MEDICATION. PATIENT DENIES ANY NEEDS AT THIS TIME. CALL LIGHT WITHIN REACH. WILL CONTINUE TO MONITOR.
[2018-05-11 20:00] VITALS: BP 110/60
--- NOTE | 2018-05-12 05:09 | NUR ---
Alert and oriented x 4, quiet and withdrawn. She is up to the bedside commode with stand by assist. Midline incision is healing well. RLQ drain is draining a small amount, brown drainage. She had pain med x 1 at bedtime, she denies pain at this time. She has slept well this shift.
[2018-05-12 08:00] VITALS: BP 121/60
[2018-05-12] MEDS ORDERED: AMOX TR-K CLV1 EAC3 PO (08:10)
[2018-05-12] MEDS ORDERED: PRENATAL PO (08:10)
[2018-05-12] MEDS ORDERED: MIRALAX17 GM PO (08:10)
[2018-05-12] MEDS ORDERED: CYMBALTA30 MG PO (08:10)
[2018-05-12] MEDS ORDERED: HYDROCODON-ACE1 EAC7 PO (08:10)
[2018-05-12] MEDS ORDERED: DURAGESIC1 EAC4 TRANSDERM (08:10)
[2018-05-12] MEDS ORDERED: NEXIUM40 MG PO (08:10)
[2018-05-12] MEDS ORDERED: ATIVAN1 MG PO (08:10)
[2018-05-12 10:49] VITALS: BP 121/60
--- NOTE | 2018-05-12 11:30 | NUR ---
Pt to dc home today with family care. Pt accepting of [facility] to evaluate and provide follow up care services. SW to fax final orders to [facility]. Pt has family providing transportation home. Pt plans to eat as much foods as she can to take in as much calories as possible.
[2018-05-12 15:01] VITALS: BP 121/60
[2018-05-12] MEDS ORDERED: DIFLUCAN200 MG PO (15:10)
[2018-05-12] MEDS ORDERED: AUGMENTIN 500-1 EACH PO (15:11)
[2018-05-12 15:50] VITALS: BP 121/60
--- NOTE | 2018-05-12 15:50 | NUR ---
PATIENT DISCHARGED TO HOME. DISCHARGE PAPERS REVIEWED AND SIGNED. PRESCRIPTIONS AND INFORMATION SHEETS GIVEN. PICC LINE REMOVED, PRESSURE HELD 5 MINUTRES AND PRESSURE DRESSING APPLIED. PATIENT AND FAMILY EDUCATED ON FLUSHING DRAIN AND SUPPLIES GIVEN. PATIENT GIVEN INFORMATION ON SOFT DIET BY SCRIPT DEVELOPER. PATIENT REFUSED HOSPICE/PALLIATIVE CARE. PATIENT AND FAMILY DENY ANY FURTHER NEEDS. PATIENT TAKEN BY WHEELCHAIR TO EXIT. LEFT WITH DAUGHTER.
== END 2018-05-12 15:50 | disposition home or self-care (01) | DRG 329 ==
LOC: M.ERS 13:03 → M.TBA-ER 15:15 → M.2W 15:15 → M.ORTHSURG 04-14 16:29 → M.3W 04-15 18:13
PROVIDERS: Family Medicine; Internal Medicine; Internal Medicine Hematology & Oncology; Internal Medicine Nephrology; Physician Assistant; Surgery; Urology
PROC: 30233N1 Transfusion of Nonautologous Red Blood Cells into Peripheral Vein, Percutaneous Approach (ICD-10-PCS; 2018-04-02)
PROC: 0DBH8ZX Excision of Cecum, Via Natural or Artificial Opening Endoscopic, Diagnostic (ICD-10-PCS; principal; 2018-04-04)
PROC: 0T1 Urinary System, Bypass (ICD-10-PCS; 2018-04-06)
PROC: 0DBU0ZZ Excision of Omentum, Open Approach (ICD-10-PCS; 2018-04-06)
PROC: 0DTF0ZZ Resection of Right Large Intestine, Open Approach (ICD-10-PCS; 2018-04-06)
PROC: 0DU907Z Supplement Duodenum with Autologous Tissue Substitute, Open Approach (ICD-10-PCS; 2018-04-06)
PROC: 0T760DZ Dilation of Right Ureter with Intraluminal Device, Open Approach (ICD-10-PCS; 2018-04-06)
PROC: 0WJP4ZZ Inspection of Gastrointestinal Tract, Percutaneous Endoscopic Approach (ICD-10-PCS; 2018-04-06)
PROC: 02HV33Z Insertion of Infusion Device into Superior Vena Cava, Percutaneous Approach (ICD-10-PCS; 2018-04-07)
PROC: 0W9F30Z Drainage of Abdominal Wall with Drainage Device, Percutaneous Approach (ICD-10-PCS; 2018-04-15)
PROC: 02HV33Z Insertion of Infusion Device into Superior Vena Cava, Percutaneous Approach (ICD-10-PCS; 2018-04-16)
DX: C18.0 Malignant neoplasm of cecum (principal); E43 Unspecified severe protein-calorie malnutrition; K65.1 Peritoneal abscess; K63.1 Perforation of intestine (nontraumatic); G92 Toxic encephalopathy; J96.01 Acute respiratory failure with hypoxia; N17.0 Acute kidney failure with tubular necrosis; D62 Acute posthemorrhagic anemia; R65.10 Systemic inflammatory response syndrome (SIRS) of non-infectious origin without acute organ dysfunction; K56.7 Ileus, unspecified; E87.1 Hypo-osmolality and hyponatremia; S37.13XA Laceration of ureter, initial encounter; J44.1 Chronic obstructive pulmonary disease with (acute) exacerbation; A04.71 Enterocolitis due to Clostridium difficile, recurrent; J98.11 Atelectasis; K63.2 Fistula of intestine; Z66 Do not resuscitate; I10 Essential (primary) hypertension; E83.42 Hypomagnesemia; F43.21 Adjustment disorder with depressed mood; E83.51 Hypocalcemia; R59.0 Localized enlarged lymph nodes; E87.6 Hypokalemia; L29.9 Pruritus, unspecified; K59.03 Drug induced constipation; T40.605A Adverse effect of unspecified narcotics, initial encounter; I73.9 Peripheral vascular disease, unspecified; R19.00 Intra-abdominal and pelvic swelling, mass and lump, unspecified site; K80.20 Calculus of gallbladder without cholecystitis without obstruction; N18.3 Chronic kidney disease, stage 3 (moderate); Y33.XXXA Other specified events, undetermined intent, initial encounter; Y92.234 Operating room of hospital as the place of occurrence of the external cause; Y93.89 Activity, other specified; Y99.8 Other external cause status; Z86.718 Personal history of other venous thrombosis and embolism; Y92.89 Other specified places as the place of occurrence of the external cause; Z68.28 Body mass index [BMI] 28.0-28.9, adult; Z79.899 Other long term (current) drug therapy; Z80.0 Family history of malignant neoplasm of digestive organs

== ENCOUNTER → 2018-07-18 | Day surgery (SDC) | payer MEDICAID ==
[~2018-07-18] MED LIST: AMOX TR-K CLV1 EAC3 PO; ATIVAN1 MG PO; AUGMENTIN 500-1 EACH PO; COLACE100 MG PO; CYMBALTA30 MG PO; DIFLUCAN200 MG PO; DURAGESIC1 EAC4 TRANSDERM; HYDROCODON-ACE1 EAC7 PO; IBUPROFEN 200200 M1 PO; KEFLEX500 M1 PO; MIRALAX17 GM PO; NEXIUM40 MG PO; PRENATAL PO; PYRIDIUM200 M2 PO; TYLENOL325 MG PO
[2018-07-18 06:58] LABS: HEMOGLOBIN 6.5 gm/dL (12.0-15.0); MCH 20.1 pg (26.0-34.0); MCHC 29.6 g/dL (28.0-37.0); MPV 7.6 fl. (7.2-11.1); RBC 3.23 mil/uL (4.20-5.00); RDW-CV 20.8 % (10.5-14.5); WBC 7.9 thou/uL (4.0-11.0)
--- NOTE | 2018-07-21 19:03 | OP ---
[facility] [address] [place] [address] OPERATIVE REPORT Name: KIANNA HIDALGO Room: [facility] Otoniel#: [id number] Admission: 07/18/18 Attend Phys: Kehinde De Luna MD Discharge: Date of : 51 Report #: [id number] THIS REPORT FOR: //name// CC: [facility] physician/PCP Kehinde De Luna DATE OF SERVICE: 07/18/2018 PREOPERATIVE DIAGNOSIS: History of right ureteral injury. POSTOPERATIVE DIAGNOSIS: History of right ureteral injury. PROCEDURE PERFORMED: 1. Cystoscopy with right ureteral stent exchange. 2. Right retrograde pyelogram. SURGEON: Kehinde De Luna M.D. ANESTHESIA: General endotracheal. BRIEF HISTORY: The patient is a 62-year-old female with history of a right proximal ureteral transection during right hemicolectomy on 04/06/2018. She underwent right ureteroureterostomy. She presents today for cystoscopy with right ureteral stent removal versus exchange and right retrograde pyelogram. The risks of the procedure including the risks of bleeding, infection, damage to surrounding structures, need for additional procedures, and anesthetic risks were discussed with the patient and she wished to proceed. PROCEDURE IN DETAIL: The risks and benefits of the surgery were discussed with the patient and she wished to proceed. Informed consent was obtained and the patient was transferred to the operating room where she was laid supine on the operating room table. After the induction of adequate general endotracheal anesthesia and the administration of appropriate preoperative antibiotics, the patient's legs were placed in a modified dorsal lithotomy position, taking care to pad all pressure points and avoid any hyperextension or hyperflexion of her joints. The patient's genitalia were prepped and draped in the usual sterile fashion. A timeout was then performed to ensure correct patient and procedure. At this time, a 22-Albanian cystoscope sheath with a 30-degree lens was lubricated and advanced under direct vision and irrigation through the urethra and into the bladder. A urine specimen was obtained through the cystoscope and was passed off the table for culture and sensitivity. The cystoscope was disarticulated and the bladder was drained. Cystoscopy was performed and revealed a mildly encrusted stent emanating from the patient's right ureteral orifice. Systematic panendoscopy revealed no gross bladder wall pathology, save some mild edema of the right trigone likely secondary to stent irritation. There were no papillary bladder tumors or suspicious mucosal lesions identified. At this time, [address] [place] [address] OPERATIVE REPORT Name: KIANNA HIDALGO [facility]#: [id number] Admission: 07/18/18 Attend Phys: Kehinde De Luna MD Discharge: Date of : 51 Report #: [id number] ZIPwire was advanced into the right ureter alongside the stent under fluoroscopic guidance until it was seen to coil within the right collecting system. The wire was clamped to the drape as a safety wire. The cystoscope was reinserted and the patient's existing stent was grasped and removed without difficulty. The stent was inspected and was found to be completely intact. At this time, a 10-Albanian dual lumen catheter was advanced over the wire and into the distal ureter. A retrograde pyelogram was performed by injecting contrast through the second lumen of the catheter. Contrast could be seen filling the distal and mid ureter without abnormality. As contrast approached the proximal ureter, it did progress across the proximal ureter and filled the right collecting system. There was no extravasation of contrast noted; however, the proximal ureter was very narrow--likely corresponding to the area of injury/repair. Contrast did fill a mildly to moderately dilated right collecting system. The dual lumen catheter was removed and the kidney was allowed to drain. Five-minute post-drainage films revealed minimal drainage. At this point, I contacted the family to discuss the patient's upcoming medical therapy. She is scheduled to see the medical oncologist this Wednesday. They are unsure of the course of action as it relates to further treatments (including chemotherapy). In order to maximize her renal drainage in the event that she necessitates chemotherapy, the decision was made to replace her stent given the narrowed nature of the proximal ureter in the area of repair. A 6 x 26 double-J ureteral stent was then advanced over the wire and into position. The wire was withdrawn, deploying the stent. A good coil of the stent was identified within the right renal pelvis under fluoroscopy and a good coil of the stent was identified within the bladder under direct vision with the cystoscope. The cystoscope was disarticulated and the bladder was drained. The patient's urethra was anesthetized with 2% lidocaine jelly. The patient was then returned to a supine position, awakened from anesthesia, and transferred to the Postoperative Care Unit in stable condition. The patient tolerated the procedure well. COMPLICATIONS: None. ESTIMATED BLOOD LOSS: None. IV FLUIDS: Crystalloid. DRAINS: Right 6 x 26 double-J ureteral stent. FINDINGS: 1. No gross bladder wall pathology. No papillary bladder tumors or suspicious mucosal lesions identified. 2. Existing right ureteral stent encrusted, but removed intact. 3. Right retrograde pyelogram demonstrating no evidence of contrast extravasation from the proximal ureter in the area of repair, but stricturing. 4. Esjw-wa-opibzjub right hydronephrosis. [address] [place] [address] OPERATIVE REPORT Name: KIANNA HIDALGO Room: [facility]..#: [id number] Admission: 07/18/18 Attend Phys: Kehinde De Luna MD Discharge: Date of : 51 Report #: [id number] 5. New right 6 x 26 double-J ureteral stent in good position by fluoroscopy and direct vision. <ELECTRONICALLY SIGNED> By: Kehinde De Luna MD 07/21/18 [id number] De Luna MD /nt
== END | disposition home or self-care (01) ==
LOC: M.SUR 06:03
PROVIDERS: Urology
DX: N13.1 Hydronephrosis with ureteral stricture, not elsewhere classified (principal); D64.9 Anemia, unspecified; Z98.890 Other specified postprocedural states; Z79.899 Other long term (current) drug therapy

== ENCOUNTER 2018-08-02 10:14 | Inpatient (IN) | payer MEDICAID ==
[~2018-08-02] VITALS: Ht 157.5 cm; Wt 49.9 kg
[2018-08-02 10:20] VITALS: BP 116/90
[2018-08-02] MEDS ORDERED: CYMBALTA30 MG PO (10:23)
[2018-08-02 10:49] LABS: ABSOLUTE BASOPHILS 0.1 thou/uL (0.0-0.2); ABSOLUTE LYMPHOCYTES 1.2 thou/uL (0.8-5.3); ABSOLUTE MONOCYTES 0.4 thou/uL (0.0-1.2); ABSOLUTE NEUTROPHILS 7.5 thou/uL (1.6-8.1); EOSINOPHILS 0.3 %; HEMATOCRIT 24.9 % (37.0-47.0); HEMOGLOBIN 7.5 gm/dL (12.0-15.0); LYMPHOCYTES 12.6 %; MCH 20.5 pg (26.0-34.0); MCHC 30.1 g/dL (28.0-37.0); MONOCYTES 4.9 %; MPV 7.9 fl. (7.2-11.1); NUCLEATED RBCS 0 /100WBC; PLATELET COUNT* 689 thou/uL (150-400); POLYS 81.2 %; RBC 3.67 mil/uL (4.20-5.00); RDW-CV 22.9 % (10.5-14.5); WBC 9.2 thou/uL (4.0-11.0)
--- NOTE | 2018-08-02 10:52 | NUR ---
25MCG TRANSDERMAL PATCH REMOVED FROM PTS BACK.
[2018-08-02 10:53] LABS: ANION GAP 11 mmol/L (7-16); BUN 18 mg/dL (7-18); CALCIUM 9.2 mg/dL (8.5-10.1); CHLORIDE 96 mmol/L (98-107); CO2 30 mmol/L (21-32); CREATININE 0.8 mg/dL (0.6-1.3); GLUCOSE 127 mg/dL (70-99); POTASSIUM 3.7 mmol/L (3.5-5.1); SODIUM 137 mmol/L (136-145)
[2018-08-02 11:02] LABS: ALBUMIN 3.5 g/dL (3.4-5.0); ALKALINE PHOSPHATASE 159 U/L (46-116); LIPASE 263 U/L (73-393); SGOT 15 U/L (15-37); SGPT 16 U/L (30-65); TOTAL BILIRUBIN 0.5 mg/dL (<0.1-1.0); TROPONIN-I LEVEL <0.06 ng/mL (<0.06)
[2018-08-02 11:12] LABS: ANISOCYTOSIS 3+; HYPOCHROMASIA 3+; MICROCYTES 2+; POLYCHROMASIA 1+
[2018-08-02 12:57] LABS: URINE BILIRUBIN NEGATIVE (Negative); URINE BLOOD 1+ (Negative); URINE CLARITY CLEAR; URINE COLOR YELLOW; URINE GLUCOSE-RANDOM NEGATIVE (Negative); URINE KETONES TRACE (Negative); URINE LEUKOCYTES-REFLEX 1+ (Negative); URINE NITRITE-REFLEX NEGATIVE (Negative); URINE PROTEIN TRACE (Negative); URINE SPECIFIC GRAVITY <= 1.005 (1.005-1.030); URINE UROBILINOGEN 0.2 E.U./dl (0.2-1.0)
[2018-08-02 13:27] LABS: CASTS None Seen /LPF (None Seen); CRYSTALS None Seen /LPF (None Seen); MUCUS 0-3 Light strn/LPF (None Seen); SQUAMOUS 0-3 Few /LPF (0-3); URINE RBC 3-10 Few /HPF (0-2)
[2018-08-02 14:15] VITALS: BP 147/85
[2018-08-02 15:01] VITALS: BP 156/81
--- NOTE | 2018-08-02 15:51 | EKG ---
[place] [address] ELECTROCARDIOGRAM REPORT Name: KIANNA HIDALGO Room: [address] ADM IN M.R.#: [id number] Admission: 08/02/18 Attend Phys: Rich Murrieta Discharge: Date of : 51 Report #: [id number] THIS REPORT FOR: //name// [facility] ED Test Date: 2018-08-02 Test Time: 10:37:57 Pat Name: KIANNA HIDALGO Department: Room: [facility] Gender: F Global Technical Writer: MALINDA : 1955 Requested By: Sonia Cho Order Number: [id number] MD: Allan Gray Measurements Intervals [place] Rate: 91 P: 38 [place]: 122 QRS: 6 QRSD: 89 T: 45 QT: 389 QTc: 479 Interpretive Statements Sinus rhythm Minimal ST depression, inferior leads Borderline prolonged QT interval Compared to ECG 04/02/2018 14:40:26 No significant changes Electronically Signed On 08-02-2018 15:50:51 CDT by Allan Gray [email or web address] <ELECTRONICALLY SIGNED> By: Allan Gray MD, [facility] 08/02/18 1550 1037 1037 Allan Gray MD, [facility] /EPI
--- NOTE | 2018-08-02 16:04 | NUR ---
PT ADMITTED TO UNIT WITH SMALL BOWEL OBSTRUCTION. PAIN AND NAUSEA MEDS GIVEN ORDERED. PT ALERT AND ORIENTED. PT ON ROOM AIR. LAST BM WEDNESDAY. PULSES 2+ IN ALL EXTREMITIES. PT REFUSED GAIT BELT WHILE AMBULATING. STAND BY TO BATHROOM. PT EDUCATED ON FALL RISK PRECAUTIONS.
[2018-08-02 16:30] VITALS: BP 157/69
--- NOTE | 2018-08-02 17:16 | NUR ---
PT RESTING IN ROOM. PAIN AND NAUSEA MEDS GIVEN ORDERED. PT RESTING IN ROOM. PICC ORDERED, AWAITING PLACEMENT. TPN ORDERED. FALL RISK PRECAUTIONS IN PLACE. HOURLY ROUNDING COMPELTED. WILL CONTINUE TO MONITOR.
--- NOTE | 2018-08-02 20:00 | NUR ---
CONSULTED TO PLACE A PICC FOR A PATIENT NEEDING TPN. ORDER AND CONSENT NOTED. THE PROCEDURE WELL BENIFITS AND RISKS FOR DVT AND INFECTION DISCUSSED WITH THE PATIENT AND SHE VERBALIZED UNDERSTANDING. THE RIGHT UPPER ARM BASILIC WAS WIDLEY PATENT. A #5F DOUBLE LUMEN POWER PICC WAS PLACED PER HOSPITAL POLICY AFTER A BEDSIDE TIMEOUT WAS COMPLETED. PICC WAS TREIMMED TO 40CM AND ADVANCED WITHOUT DIFFICULTY. LINE WAS CONFIRMED USING 3CG AT 2CM EXTERNAL. LINE WAS SECURED AND RELEASED FOR USE
[2018-08-02 21:15] VITALS: BP 133/63
--- NOTE | 2018-08-03 05:39 | NUR ---
PT ALERT AND ORIENTED. VITALS STABLE RA. MEDS, IV FLUID GIVEN ORDERED. PRN OXY, ATIVAN, AND ZOFRAN GIVEN PER PT REQUEST. PT TOLERTATED TPN. HOURLY ROUNDING COMPLETED. WILL CONTINUE TO MONITOR.
[2018-08-03 06:54] LABS: ALBUMIN 2.6 g/dL (3.4-5.0); CALCIUM 8.1 mg/dL (8.5-10.1); CREATININE 0.7 mg/dL (0.6-1.3); MAGNESIUM 1.6 mg/dL (1.8-2.4); PHOSPHORUS* 2.6 mg/dL (2.5-4.9); POTASSIUM 3.5 mmol/L (3.5-5.1); TOTAL BILIRUBIN 0.3 mg/dL (<0.1-1.0)
[2018-08-03 08:00] VITALS: BP 110/62
--- NOTE | 2018-08-03 11:45 | NUR ---
MET WITH PT TO DISCUSS HOME SITUATION/DC PLANNING. PT LIVES ALONE, SON LIVES ON SAME PROPERTY AND IS SUPPORTIVE. PT WAS DC'D IN [facility] WITH [facility]. STATES SHE HAS REVOKED TO COME TO HOSPITAL AND UNSURE SHE WANTS TO CONTINUE WITH HOSPICE [place]. HER SPOUSE WAS ON [facility] AND SHE IS STILL FOLLOWED WITH THEIR BEREAVEMENT PROGRAM. PT HAS WALKER. STATES HAS HAD SOME 'FALLS' AT HOME RECENTLY. SHE STATES SHE GETS AROUND HER HOUSE 'OK' WITH WALKER WITH SEAT. CHILDREN BRING FOOD IN AND SHE CAN HEAT UP FOOD. SHE HAS HAD AN AIDE 3X/WK THAT ASSISTS WITH PERSONAL CARE. PT PLANS TO RETURN HOME AT [place]. WILL CONSIDER OPTIONS AT DC BUT DIDN'T WANT TO DISCUSS TODAY. SON/TITUS IS DPOA. ALL HER CHILDREN WORK AND SHE DECLINED FOR THEM TO BE CALLED TODAY. WILL FOLLOW
--- NOTE | 2018-08-03 17:10 | NUR ---
Pt resting in bed throughout shift,repositions self well. Pt refuses to get up to chair. Family at BS,hospice consult requested. Family very involved in care. Pt started on soft diet this pm and tolerated well. TPN and IVF infusing
--- NOTE | 2018-08-03 18:24 | NUR ---
PT'S SON CALLED FOR ASSIST. HE REPORTS HE WAS WALKING PT TO BR AND SHE ATTEMPTED TO "SIT ON THE BED BUT THERE WAS NOT BED THERE". PT REMAINS CONFUSED HAS A STEADY GAIT AND AMBULATES WITH MINIMAL ASSIST. SUPERFICIAL LAC TO FOREHEAD,BLEEDING CONTROLLED. SON REPORTS HE DID NOT SEE HER STRIKE HER HEAD. DR STEVE NOTIFIED. ORDERS RECEIVED
[2018-08-03 18:30] VITALS: BP 134/68
[2018-08-03 21:25] VITALS: BP 109/46
--- NOTE | 2018-08-04 05:12 | NUR ---
PT REMAINED ALERT AND ORIENTED. VITALS STABLE RA. MEDS GIVEN ORDERED. PT FAMILY WERE SO ANXIOUS AND KEPT ASKING ABOUT POST FALL CT RESULT. DR NOTIFIED BY ENROLLMENT COUNSELOR, AND SON(DPOA)'S NUMBER GIVEN TO . HYDROCODONE GIVEN FOR PAIN PER PT REQUEST. PT TOLERATED TPN AT 80ML/HR WITHOUT NAUSEA OR VOMITING. HOURLY ROUNDING COMPLETED. WILL CONTINUE TO MONITOR.
[2018-08-04 05:16] LABS: CALCIUM 7.7 mg/dL (8.5-10.1); CREATININE 0.5 mg/dL (0.6-1.3); MAGNESIUM 1.7 mg/dL (1.8-2.4); PHOSPHORUS* 2.8 mg/dL (2.5-4.9); POTASSIUM 3.4 mmol/L (3.5-5.1)
[2018-08-04 08:00] VITALS: BP 109/57
--- NOTE | 2018-08-04 09:00 | NUR ---
DR GEORGE AND SW AT . ALL OF PT'S CHILDREN PRESENT. DISCUSSED SEVERITY OF ILLNESS AND PROGRESSION. PT STATES SHE WOULD LIKE TO BE KEPT COMFORTABLE AND DOES NOT WANT AGGRESSIVE TREATMENT OF HER CANCER. HOSPICE CONSULTED TO SEE PT TODAY
--- NOTE | 2018-08-04 10:35 | NUR ---
CONTINUE TO FOLLOW. DR GEORGE MET WITH PT AND FAMILY THIS AM TO DISCUSS POC AND REC: HOSPICE. FAMILY WOULD LIKE TO USE [facility]. CALLED AND FAXED REFERRAL TO [facility]. PER FAMILY, [facility] CALLED THEM AND SET UP EVAL FOR 1130 TODAY. TALKED FURTHER WITH SON/TITUS AND DIL/YEYO ABOUT GETTING IN HOME SERVICES THRU MEDICAID AND GAVE NUMBER TO CALL, GAVE PRIVATE DUTY LIST AND DISCUSSED LTC WITH HOSPICE. PLAN AT THIS TIME IS TO RETURN HOME WITH HOSPICE. AWAIT EVAL BY [facility] AND WILL FOLLOW.
[2018-08-04 13:42] VITALS: BP 109/57
[2018-08-04 16:30] VITALS: BP 111/46
--- NOTE | 2018-08-04 18:00 | NUR ---
PT BELIGERENT AND STATES SHE WANTS TO GO HOME. "WILL YOU CALL ELECTRONIC SYSTEM ENGINEER ON ME ON ME IF I LEAVE?" ENCOURAGED PT TO STAY TONIGHT FOR SAFETY REASONS AND TO GO HOME WITH HOSPICE IN AM. SONS AT BS AND IN AGREEMENT.DISCUSSED WITH SON TITUS OUTSIDE THE ROOM THAT PT MAY NOT BE ABLE TO MAKE SAFE DECISIONS AT THIS TIME D/T HER DIAGNOSIS. SON STATES THEY ARE IN AGREEMENT THAT PT IS STAYING TONIGHT AND THEY WILL NOT BE TAKING HER HOME
--- NOTE | 2018-08-04 18:29 | NUR ---
PT RESTING IN BED MOST OF SHIFT. ASSISTED TO BR WITH STEADY GAIT. TOLERATING PO WELL. PAIN WELL CONTROLLED. PT REPORTS SHE WANTS TO LEAVE.PT OCASSIONALLY BELIGERENT BUT EASILY REDIRECTED. TPN INFUSING. PLAN TO GO HOME WITH HOSPICE IN AM
[2018-08-04 22:00] VITALS: BP 151/79
[2018-08-05 05:25] LABS: CREATININE 0.6 mg/dL (0.6-1.3); MAGNESIUM 1.9 mg/dL (1.8-2.4); PHOSPHORUS* 3.3 mg/dL (2.5-4.9); POTASSIUM 3.9 mmol/L (3.5-5.1)
--- NOTE | 2018-08-05 06:47 | NUR ---
PT ALERT AND ORIENTED X4. CONFUSION AND HALLUCINATION PRESENT. MEDS GIVEN PER MEAR. PAIN MED GIVEN X1 THIS SHIFT. PT WAS RESTLESS AND HARDLY GOT ANY SLEEP. ACTIVAN AND TEMAXEPAM GIVEN. PT HAD 2 EPISODES OF EMESIS. ZOFRAN GIVEN X2 FOR N/V. DAUGHTER IN THE ROOM WITH PT THROUGH SHIFT. PT TO MS HOME WITH HOSPICE TODAY. FALL. PRECAUTION IN PLACE. HOURLY ROUNDINGS MADE. WILL CONTINUE TO MONITOR.
[2018-08-05 08:00] VITALS: BP 119/67
[2018-08-05] MEDS ORDERED: DEXAMETHASONE 44 M1 PO (08:29)
[2018-08-05] MEDS ORDERED: TRANSDERM-SCOP1 EACH TRANSDERM (08:29)
[2018-08-05] MEDS ORDERED: ZOFRAN ODT4 MG SUBLING (08:29)
[2018-08-05] MEDS ORDERED: PHENERGAN 25 MG25 M1 PO (08:29)
--- NOTE | 2018-08-05 12:16 | NUR ---
ORDERS NOTED FOR DC. PT STATES HER NAUSEA IS BETTER. CALLED AND FAXED ORDERS TO [facility]. FAMILY NOW ASKED ABOUT GETTING A WEDGE, GAIT BELT, BSC AND OVERBED TABLE FOR HOME. JA AWARE. PURPLE OUTSIDE DNR FORM COMPLETED AND GIVEN TO DTR, COPY IN CHART. PT ANXIOUS TO GO HOME. TALKED WITH FAMILY ABOUT CARE AT HOME. SOMEONE PLANS TO STAY WITH HER. DISCUSSED WITH NURSE
--- NOTE | 2018-08-05 13:05 | CON ---
[address] [address] CONSULTATION Name: KIANNA HIDALGO Room: [address] IN M.R.#: [id number] Admission: 08/02/18 Attend Phys: Rich Murrieta Discharge: Date of : 51 Report #: [id number] THIS REPORT FOR: //name// CC: [facility] physician/PCP Vale Borges DATE OF SERVICE: 08/03/2018 REASON FOR CONSULTATION: Colon cancer and small bowel obstruction. REQUESTING PHYSICIAN: Vale Borges MD HISTORY OF PRESENT ILLNESS: The patient is a 62-year-old woman with a history of cecal carcinoma, diagnosed in 03/2018. She had resection from, she had multiple lymph nodes involved with metastatic carcinoma. Tumor was locally advanced, but adhered to wall and margins were positive. She was seen by my partner, Dr. Hernandez. She had multiple complications after surgery including abscess. Recently, she was seeing Dr. Hernandez for discussion of treatment options. Dr. Hernandez did not think she was a good candidate for chemotherapy. The patient has been on hospice. Now, she is admitted to the hospital with complaints of nausea, vomiting, and abdominal pain. Oncology consultation was requested. She is extremely weak. She says she spent most of time in bed, sometimes ____ trying to take care of herself and her house. She lives alone. She has hospice nurses come in 3 times a week. She has complaints of anorexia, anxiety, insomnia and abdominal pain. She takes Vicodin 2 twice a day ____ to 3 times a day. She is on fentanyl patch. She feels that her pain control is okay. She is in the hospital with nausea and vomiting resolved. Abdominal pain is stable. She started eating a regular diet and tolerating well. ____ she has questions regarding prognosis. She denies fevers or chills. PAST MEDICAL HISTORY: Significant for colon cancer, locally advanced/recurrent, anemia, iron deficiency. SOCIAL HISTORY: She still lives alone. Her children are very supportive, but ____ she still goes to a long-term facility ____ children. PHYSICAL EXAMINATION: GENERAL: Reveals a chronically ill-appearing woman, not in any acute distress. VITAL SIGNS: Blood pressure 110/62, ____, respirations 18. ADDENDUM CT scan reviewed. ASSESSMENT AND PLAN: 1. Recurrent/locally-advanced colon cancer. [place] [address] CONSULTATION Name: KIANNA HIDALGO Room: [address]#: [id number] Admission: 08/02/18 Attend Phys: Rich Murrieta Discharge: Date of : 51 Report #: [id number] candidate for chemotherapy. She is interested in changing hospice, ____ [facility] consultation. I have had a long discussion regarding prognosis, IV aggressive chemotherapy and risk of chemotherapy. After a long discussion, she is not interested in chemotherapy, wants to continue hospice ____. 2. Pain. Continue current management. 3. Insomnia. Agree with [facility]. Thank you very much for allowing me to participate in care of your patient. <ELECTRONICALLY SIGNED> By: Emmanuel Travis MD 08/05/18 1305 [id number] [id number] Travis MD /nt
--- NOTE | 2018-08-05 14:04 | NUR ---
ORDERS RECEIVED AND CHART REVIEW PERFORMED. PATIENT WILL BE DC'ED FROM [facility]. PATIENT DECLINES P.T. INDICATING THAT SHE CAN GET AROUND FINE. SHE IS ACCOMPANIED WITH BOTH HER DAUGHTER AND [id number], WHO ALSO CONCURS THAT PATIENT WILL BE FINE. PATIENT WILL HAVE HELP AT ALL TIMES FROM HER FAMILY. PT NO EVALUATED AT PATIENT'S AND FAMILY'S REQUEST. HARIKA HICKS, MPT
--- NOTE | 2018-08-05 14:44 | NUR ---
DISCHARGE NOTE - PT DISCHARGED HOME WITH HOSPICE. ALL BELONGINGS SENT WITH PT. REVIEWED INSTRUCTIONS WITH PT AND DTR. PICC LINE REMOVED WITHOUT DIFFICULTY. KUB STABLE AND PT DENIES ANY N/V.
== END 2018-08-05 14:40 | disposition hospice, home (50) | DRG 374 ==
LOC: M.ERS 10:14 → M.TBA-ER 12:20 → M.ORTHSURG 12:20
PROVIDERS: Nurse Practitioner Family; ADMIT Internal Medicine
PROC: 05HY33Z Insertion of Infusion Device into Upper Vein, Percutaneous Approach (ICD-10-PCS; principal; 2018-08-02)
DX: C18.9 Malignant neoplasm of colon, unspecified (principal); E43 Unspecified severe protein-calorie malnutrition; C78.6 Secondary malignant neoplasm of retroperitoneum and peritoneum; C79.31 Secondary malignant neoplasm of brain; Z51.5 Encounter for palliative care; F32.9 Major depressive disorder, single episode, unspecified; F41.9 Anxiety disorder, unspecified; G89.3 Neoplasm related pain (acute) (chronic); D64.9 Anemia, unspecified; G47.00 Insomnia, unspecified; Z68.20 Body mass index [BMI] 20.0-20.9, adult; Z85.038 Personal history of other malignant neoplasm of large intestine; Z92.21 Personal history of antineoplastic chemotherapy; Z90.49 Acquired absence of other specified parts of digestive tract; Z79.899 Other long term (current) drug therapy; Z80.0 Family history of malignant neoplasm of digestive organs